=== PATIENT | female | born 1990 | race Caucasian/White ===

== ENCOUNTER 2018-05-03 18:49 | Emergency (ER) | payer MEDICAID, OTHER ==
[2018-05-03 19:31] VITALS: O2SAT 97
[2018-05-03] MEDS ORDERED: Norflex 60 MG/2 ML IM ONE (19:45)
[2018-05-03] MEDS ORDERED: TORAdol 30 mg Injection IM ONE (19:45)
[2018-05-03] MEDS ORDERED: Norflex 60 MG/2 ML ONE (19:50)
[2018-05-03] MEDS ORDERED: TORAdol 30 mg Injection ONE (19:50)
--- NOTE | 2018-05-03 19:50 | ERPHSYRPT ---
- History of Present Illness Time Seen by Provider: 05/03/18 19:41 Source: patient Exam Limitations: no limitations Patient Subjective Stated Complaint: pt states while transferring a pt from a chair to wheelchair she pulled somethihng in her back. states pain is in lt lower back radiating down and to rt side Triage Nursing Assessment: pt alert and oriented, asnwers questions approp. pt ambulatory with steady gait ntoed. respirations nonlabored with lungs cta. tenderness ntoed to lt lower back. pt reports good sensation in lower ext. cap refill and pedal pulses wnl. Physician History: This is a 28-year-old white female arrives with complaint of pain in her left lumbar region symptoms since today patient states she injured her back lifting a client out of a chair. She states she felt a pop she has pain in the left lumbar region. She has no neurologic changes pain is worse with movement no shortness of breath. Past medical history includes migraines, anxiety, depression, calcium deficiency Past surgical history includes tonsillectomy cholecystectomy and tubal ligation. Social history former smoker, occasional drinker no illicit drugs. Timing/Duration: today Severity: moderate Modifying Factors: Improves With: nothing Associated Symptoms: No nausea, No vomiting, No abdominal pain, No shortness of breath, No heartburn, No diaphoresis, No cough, No chills, No chest pain, No fever, No headaches, No loss of appetite, No malaise, No rash, No syncope, No weakness, No other Allergies/Adverse Reactions: Bleach Allergy (Uncoded 05/03/18 19:32) verified 06/01/16 Hx Tetanus, Diphtheria Vaccination/Date Given: Yes Hx Influenza Vaccination/Date Given: No Hx Pneumococcal Vaccination/Date Given: No Immunizations Up to Date: Yes - Review of Systems Constitutional: No Fever, No Chills Eyes: No Symptoms Ears, Nose, & Throat: No Symptoms Respiratory: No Cough, No Dyspnea Cardiac: No Chest Pain, No Edema, No Syncope Abdominal/Gastrointestinal: No Abdominal Pain, No Nausea, No Vomiting, No Diarrhea Genitourinary Symptoms: No Dysuria Musculoskeletal: Back Pain Skin: No Rash Neurological: No Dizziness, No Focal Weakness, No Sensory Changes Psychological: No Symptoms Endocrine: No Symptoms All Other Systems: Reviewed and Negative - Past Medical History Pertinent Past Medical History: Yes Neurological History: Migraines ENT History: No Pertinent History Cardiac History: No Pertinent History Respiratory History: No Pertinent History Endocrine Medical History: No Pertinent History Musculoskeletal History: Other GI Medical History: Gallbladder Disease History: No Pertinent History Psycho-Social History: Anxiety, Depression Female Reproductive Disorders: No Pertinent History Other Medical History: "Chronic Calcium deficiency" - Past Surgical History Past Surgical History: Yes Neuro Surgical History: No Pertinent History Cardiac: No Pertinent History Respiratory: No Pertinent History Gastrointestinal: Cholecystectomy Genitourinary: No Pertinent History Musculoskeletal: No Pertinent History Female Surgical History: No Pertinent History, Tubal Ligation Other Surgical History: t and a - Social History Smoking Status: Former smoker How long have you smoked: 11 Exposure to second hand smoke: No Drug Use: none Patient Lives Alone: No - Female History Hx Last Menstrual Period: 3 days ago Hx Now: No - Nursing Vital Signs Nursing Vital Signs: Initial Vital Signs Temperature 97.9 F 05/03/18 19:19 Pulse Rate 96 H 05/03/18 19:19 Respiratory Rate 18 05/03/18 19:19 Blood Pressure 122/77 05/03/18 19:19 O2 Sat by Pulse Oximetry 97 05/03/18 19:19 Pain Scale Pain Intensity [] 7 Pain Intensity 8 - Physical Exam General Appearance: mild distress Eye Exam: PERRL/EOMI, eyes nml inspection Ears, Nose, Throat Exam: normal ENT inspection, TMs normal, pharynx normal, moist mucous membranes Neck Exam: normal inspection, non-tender, supple, full range of motion Respiratory Exam: normal breath sounds, lungs clear, No respiratory distress Cardiovascular Exam: regular rate/rhythm, normal heart sounds, normal peripheral pulses Gastrointestinal/Abdomen Exam: soft, normal bowel sounds, No tenderness, No mass Back Exam: other (back is tender in the left lumbar region with movement and palpation, muscles are tight left lumbar region) Extremity Exam: normal inspection, normal range of motion, pelvis stable Neurologic Exam: alert, oriented x 3, cooperative, senior medical technologist II-XII nml as tested, normal mood/affect, nml cerebellar function, nml station & gait, sensation nml, No motor deficits Skin Exam: normal color, warm, dry, No rash SpO2 Interpretation: normal (97%) SpO2: 97 - Course Nursing assessment & vital signs reviewed: Yes EKG Interpreted by Me: RATE (81 bpm), Sinus Rhythm, NORMAL AXIS, Other (EKG sinus arrhythmia, 81 bpm, normal axis, no acute st or t wave changes noted) - CT Exams Abdomen/Pelvis CT Interpretation: Tele-radiologist Report (CT abdomen and pelvis: Impression 1. No renal or ureteral stones, no hydronephrosis 2. Diverticulosis without diverticulitis, 3. Trace pericardial effusion) Ordered Tests: Active Orders 24 hr Category Date Time Status EKG-ER Only STAT Care 05/03/18 23:55 Active IV Insertion STAT Care 05/03/18 21:42 Active ABDOMEN AND PELVIS W/0 CONTRAS [CT] Stat Exams 05/03/18 21:56 Taken AMYLASE Stat Lab 05/03/18 22:00 Completed CBC W DIFF Stat Lab 05/03/18 22:00 Completed CMP Stat Lab 05/03/18 22:00 Completed HCG,QUALITATIVE URINE Stat Lab 05/03/18 21:10 Completed LIPASE Stat Lab 05/03/18 22:00 Completed UA W/RFX UR CULTURE Stat Lab 05/03/18 21:10 Completed Medication Summary Discontinued Medications Generic Name Dose Route Start Last Admin Trade Name Davidq PRN Reason Stop Dose Admin Sodium Chloride 1,000 mls @ 999 mls/hr 05/03/18 21:42 05/03/18 23:39 Sodium Chloride 0.9% 1000 Ml IV 05/03/18 22:42 Infused .Q1H1M STA Infusion Sodium Chloride Confirm 05/03/18 22:14 Sodium Chloride 0.9% 1000 Ml Administered 05/03/18 22:15 Dose 1,000 mls @ ud .ROUTE .STK-MED ONE Ketorolac Tromethamine 60 mg 05/03/18 19:45 05/03/18 19:54 Toradol 30 Mg Injection IM 05/03/18 19:46 60 mg STAT ONE Administration Ketorolac Tromethamine Confirm 05/03/18 19:50 Toradol 30 Mg Injection Administered 05/03/18 19:51 Dose 60 mg .ROUTE .STK-MED ONE Morphine Sulfate 4 mg 05/03/18 21:56 05/03/18 22:18 Morphine Sulfate 4 Mg Inj IV 05/03/18 21:57 4 mg STAT ONE Administration Morphine Sulfate Confirm 05/03/18 22:14 Morphine Sulfate 4 Mg Inj Administered 05/03/18 22:15 Dose 4 mg .ROUTE .STK-MED ONE Morphine Sulfate 4 mg 05/03/18 23:56 05/04/18 00:03 Morphine Sulfate 4 Mg Inj IV 05/03/18 23:57 4 mg STAT ONE Administration Morphine Sulfate Confirm 05/04/18 00:02 Morphine Sulfate 4 Mg Inj Administered 05/04/18 00:03 Dose 4 mg .ROUTE .STK-MED ONE Ondansetron HCl 4 mg 05/03/18 21:56 05/03/18 22:18 Zofran 4 Mg/2 Ml Vial IV 05/03/18 21:57 4 mg STAT ONE Administration Ondansetron HCl Confirm 05/03/18 22:14 Zofran 4 Mg/2 Ml Vial Administered 05/03/18 22:15 Dose 4 mg .ROUTE .STK-MED ONE Orphenadrine Citrate 60 mg 05/03/18 19:45 05/03/18 19:53 Norflex 60 Mg/2 Ml IM 05/03/18 19:46 60 mg STAT ONE Administration Orphenadrine Citrate Confirm 05/03/18 19:50 Norflex 60 Mg/2 Ml Administered 05/03/18 19:51 Dose 60 mg .ROUTE .STK-MED ONE Lab/Rad Data: Laboratory Result Diagrams 05/03/18 22:00 05/03/18 22:00 Laboratory Results 05/03/18 05/03/18 05/03/18 Range/Units 22:00 22:00 22:00 WBC 9.0 (4.0-10.5) K/mm3 RBC 4.81 (4.1-5.4) M/mm3 Hgb 12.6 (12.0-16.0) gm/dl Hct 38.5 (35-47) % MCV 80.0 (78-100) fl MCH 26.2 (26-32) pg MCHC 32.7 (32-36) g/dl RDW 14.3 H (11.5-14.0) % Plt Count 343 (150-450) K/mm3 MPV 10.2 H (6-9.5) fl Gran % 60.4 (36.0-66.0) % Eos # (Auto) 0.05 (0-0.5) Absolute Lymphs (auto) 2.82 (1.0-4.6) Absolute Monos (auto) 0.66 (0.0-1.3) Lymphocytes % 31.4 (24.0-44.0) % Monocytes % 7.4 (0.0-12.0) % Eosinophils % 0.6 (0.00-5.0) % Basophils % 0.2 (0.0-0.4) % Absolute Granulocytes 5.42 (1.4-6.9) Basophils # 0.02 (0-0.4) Sodium 142 (137-145) mmol/L Potassium 3.7 (3.5-5.1) mmol/L Chloride 105 (98-107) mmol/L Carbon Dioxide 26 (22-30) mmol/L Anion Gap 15.1 H (5-15) MEQ/L BUN 11 (7-17) mg/dL Creatinine 0.70 (0.52-1.04) mg/dL Estimated GFR > 60.0 ML/MIN Glucose 95 (74-106) mg/dL Calcium 10.0 (8.4-10.2) mg/dL Total Bilirubin 0.20 (0.2-1.3) mg/dL AST 22 (14-36) U/L ALT 21 (0-35) U/L Alkaline Phosphatase 80 (38-126) U/L Serum Total Protein 7.9 (6.3-8.2) g/dL Albumin 4.9 (3.5-5.0) g/dL Amylase 48 (30-110) U/L Lipase 88 (23-300) U/L Ur Collection Type Urine Color (YELLOW) Urine Appearance (CLEAR) Urine pH (5-6) Ur Specific [place] (1.005-1.025) Urine Protein (Negative) Urine Ketones (NEGATIVE) Urine Blood (0-5) Felipe/ul Urine Nitrite (NEGATIVE) Urine Bilirubin (NEGATIVE) Urine Urobilinogen (0-1) mg/dL Ur Leukocyte Esterase (NEGATIVE) Urine Culture Reflexed (NO) Urine Glucose (NEGATIVE) mg/dL Urine HCG, Qual (Negative) Specimen Received 05/03/18 05/03/18 Range/Units 21:10 21:10 WBC (4.0-10.5) K/mm3 RBC (4.1-5.4) M/mm3 Hgb (12.0-16.0) gm/dl Hct (35-47) % MCV (78-100) fl MCH (26-32) pg MCHC (32-36) g/dl RDW (11.5-14.0) % Plt Count (150-450) K/mm3 MPV (6-9.5) fl Gran % (36.0-66.0) % Eos # (Auto) (0-0.5) Absolute Lymphs (auto) (1.0-4.6) Absolute Monos (auto) (0.0-1.3) Lymphocytes % (24.0-44.0) % Monocytes % (0.0-12.0) % Eosinophils % (0.00-5.0) % Basophils % (0.0-0.4) % Absolute Granulocytes (1.4-6.9) Basophils # (0-0.4) Sodium (137-145) mmol/L Potassium (3.5-5.1) mmol/L Chloride (98-107) mmol/L Carbon Dioxide (22-30) mmol/L Anion Gap (5-15) MEQ/L BUN (7-17) mg/dL Creatinine (0.52-1.04) mg/dL Estimated GFR ML/MIN Glucose (74-106) mg/dL Calcium (8.4-10.2) mg/dL Total Bilirubin (0.2-1.3) mg/dL AST (14-36) U/L ALT (0-35) U/L Alkaline Phosphatase (38-126) U/L Serum Total Protein (6.3-8.2) g/dL Albumin (3.5-5.0) g/dL Amylase (30-110) U/L Lipase (23-300) U/L Ur Collection Type CCMS Urine Color YELLOW (YELLOW) Urine Appearance CLEAR (CLEAR) Urine pH 5.0 (5-6) Ur Specific [place] 1.030 (1.005-1.025) Urine Protein NEGATIVE (Negative) Urine Ketones NEGATIVE (NEGATIVE) Urine Blood NEGATIVE (0-5) Felipe/ul Urine Nitrite NEGATIVE (NEGATIVE) Urine Bilirubin NEGATIVE (NEGATIVE) Urine Urobilinogen NORMAL (0-1) mg/dL Ur Leukocyte Esterase NEGATIVE (NEGATIVE) Urine Culture Reflexed NO (NO) Urine Glucose NEGATIVE (NEGATIVE) mg/dL Urine HCG, Qual NEGATIVE (Negative) Specimen Received 05-03-18 2145 - Progress Progress: improved Progress Note: 05/03/18 21:57 28-year-old white female arrives with complaint of pain in her left flank and lumbar region. Which began while she was lifting a patient out of a chair she states that she had a sensation of a popping. On initial evaluation patient with the tenderness in the left lumbar region she had muscle spasms in the area. Patient was given Toradol and Norflex IM. She now is beginning to complain of pain which is much worse and radiates up into her mid scapular region urinalysis and negative urine hCG is negative. Will go ahead and obtain CBC CMP amylase lipase and CT abdomen. . 05/03/18 23:[address] of the abdomen obtained because patient continued to complain of severe pain in the left flank which was radiating into her subscapular region after lifting a patient at work. Pain continued after injection of Naprosyn and Flexeril and morphine. CT shows impression: 1. No renal or ureteral stones. No hydronephrosis 2. Diverticulosis without diverticulitis. 3. Trace pericardial effusion. Patient is continuing to complain of pain in the left flank at this time we'll go ahead and give her another 4 mg of morphine IM. Because of the trace pericardial effusion which was seen on CT Will obtain EKG. However doubt this is a significant finding. Plan home. Naprosyn 500 mg orally twice a day with food as needed for pain #20. Flexeril 10 mg orally 3 times a day for 5 days. Patient to follow-up with her company physician. No lifting more than 5 pounds repetitive bending twisting lifting pushing pulling. For 48 hours. - Departure Time of Disposition: 00:26 Departure Disposition: Home Clinical Impression: Musculoskeletal strain Back pain Qualifiers: Back pain location: low back pain Chronicity: acute Back pain laterality: left Sciatica presence: without sciatica Qualified Code(s): M54.5 - Low back pain Condition: Fair Critical Care Time: No Referrals: FABIAN MARTINEZ [Primary Care Provider] - Instructions: Low Back Pain (DC) Additional Instructions: Return home. Flexeril 10 mg orally 3 times a day #15. Naprosyn 500 mg orally twice a day with food #20. Follow-up with your company physician. No lifting more than 5 pounds no strenuous pulling pushing twisting. No repetitive bending. 48 hours. Return for acute distress or for severe symptoms. Prescriptions: Cyclobenzaprine HCl [Flexeril] 10 mg PO TID #15 tablet Naproxen 500 mg [Naprosyn 500 MG] 500 mg PO BID #20 tablet
[2018-05-03] MEDS ORDERED: Sodium Chloride 0.9% 1000 ML 1,000 ML IV STA (21:42)
[2018-05-03 21:47] LABS: Appearance CLEAR (CLEAR); Bilirubin NEGATIVE (NEGATIVE); Blood NEGATIVE Ery/ul (0-5); Glucose NEGATIVE (NEGATIVE); Ketones NEGATIVE (NEGATIVE); Leukocyte Esterase NEGATIVE (NEGATIVE); Nitrite NEGATIVE (NEGATIVE); Protein,Urine Dip NEGATIVE (Negative); Urobilinogen NORMAL mg/dL (0-1)
[2018-05-03] MEDS ORDERED: MORPHINE SULFATE 4 MG INJ IV ONE ×2 (21:56→23:56)
[2018-05-03] MEDS ORDERED: Zofran 4 MG/2 ML VIAL IV ONE (21:56)
[2018-05-03 22:12] LABS: BASOPHIL % 0.2 % (0.0-0.4); Basophil (Absolute #) 0.02 (0-0.4); Eosinophil % 0.6 % (0.00-5.0); Eosinophil (Absolute #) 0.05 (0-0.5); Granulocyte Absolute (ANC) 5.42 (1.4-6.9); Granulocytes % 60.4 % (36.0-66.0); Hematocrit 38.5 % (35-47); Hemoglobin 12.6 gm/dl (12.0-16.0); Lymphocyte (Absolute #) 2.82 (1.0-4.6); Lymphocytes % 31.4 % (24.0-44.0); Mean Corpuscular Hemoglobin 26.2 pg (26-32); Mean Corpuscular Hgb Concent. 32.7 g/dl (32-36); Mean Platelet Volume 10.2 fl (6-9.5); Monocyte (Absolute #) 0.66 (0.0-1.3); Monocytes % 7.4 % (0.0-12.0); Platelet Count 343 K/mm3 (150-450); Red Blood Count 4.81 M/mm3 (4.1-5.4); Red Cell Distribution Width 14.3 % (11.5-14.0)
[2018-05-03] MEDS ORDERED: Sodium Chloride 0.9% 1000 ML 1,000 ML ONE (22:14)
[2018-05-03] MEDS ORDERED: Zofran 4 MG/2 ML VIAL ONE (22:14)
[2018-05-03] MEDS ORDERED: MORPHINE SULFATE 4 MG INJ ONE (22:14)
[2018-05-03 22:29] LABS: ALBUMIN 4.9 g/dL (3.5-5.0); ALKALINE PHOSPHATASE 80 U/L (38-126); ANION GAP 15.1 MEQ/L (5-15); BLOOD UREA NITROGEN 11 mg/dL (7-17); CHLORIDE 105 mmol/L (98-107); Carbon Dioxide 26 mmol/L (22-30); Glucose 95 mg/dL (74-106); Potassium 3.7 mmol/L (3.5-5.1); SGOT/AST 22 U/L (14-36); SGPT/ALT 21 U/L (0-35); SODIUM 142 mmol/L (137-145); Total Protein 7.9 g/dL (6.3-8.2)
[2018-05-03 22:30] LABS: AMYLASE 48 U/L (30-110); LIPASE 88 U/L (23-300)
[2018-05-04] MEDS ORDERED: MORPHINE SULFATE 4 MG INJ ONE (00:02)
[2018-05-04 00:49] VITALS: BP 108/65; PULSE 79
--- NOTE | 2018-05-04 08:58 | XRAY ---
Indication: Left flank/back pain following lifting injury. Multiple contiguous axial images obtained through the abdomen and pelvis without contrast as ordered. Comparison: None Lung bases are clear. Heart is not enlarged. Stomach is distended with food. Noncontrasted stomach and bowel loops appear nonobstructed. Normal appendix. 1.6 cm left ovary cyst. No free fluid/air. Cholecystectomy clips and faint bilateral nephrocalcinosis. Remaining liver, pancreas, spleen, adrenal glands, kidneys, ureters, bladder, uterus, and aorta appear unremarkable for noncontrast exam. Osseous structures intact. No ventral or inguinal hernias. Left gluteal subcutaneous induration with tiny air bubble presumed iatrogenic. Impression: 1. 1.6 cm dominant left ovary cyst. 2. Faint nonobstructing bilateral nephrocalcinosis. 3. Left gluteal subcutaneous induration with air bubble presumed iatrogenic. Query recent injection. 4. Remaining CT abdomen/pelvis without contrast exam is negative. Comment: Preliminary interpretation was made by [facility]. No critical discrepancy. CT DI 27.21
== END 2018-05-04 00:49 | disposition home or self-care (01) ==
LOC: ED 18:49
DX: S39.012A Strain of muscle, fascia and tendon of lower back, initial encounter (principal); M54.5 Low back pain; M62.830 Muscle spasm of back; R10.9 Unspecified abdominal pain; I31.3 Pericardial effusion (noninflammatory); X50.0XXA Overexertion from strenuous movement or load, initial encounter; Y93.F2 Activity, caregiving, lifting; Y92.129 Unspecified place in nursing home as the place of occurrence of the external cause; Y99.0 Civilian activity done for income or pay
CPT/HCPCS: 36000; 36415; 74176; 80053; 81002; 82150; 83690; 84703; 85025; 93005; 96360; 96372; 96374; 96375; 96376; 99285; J1885; J2270; J2360; J2405

== ENCOUNTER 2021-01-27 07:02 | Day surgery (SDC) | payer BC ==
[2021-01-27] MEDS ORDERED: CEFAZOLIN 2 GM-D5W BAG** 2 GM/50 ML ML IV SCH (07:30)
[2021-01-27] MEDS ORDERED: Lactated Ringers 1,000 ML IV SCH (07:30)
[2021-01-27] MEDS ORDERED: Lactated Ringers 1,000 ML IV ONE (07:54)
[2021-01-27] MEDS ORDERED: CEFAZOLIN 2 GM-D5W BAG** 2 GM/50 ML ML IV ONE (07:54)
[2021-01-27] MEDS ORDERED: SUBLIMAZE 100 MCG/2 ML ONE ×2 (09:06→10:14)
[2021-01-27] MEDS ORDERED: DIPRIVAN 200 MG/20 ML IV ONE ×2 (09:06→09:50)
[2021-01-27] MEDS ORDERED: Versed 2 MG/2 ML Injection ONE (09:06)
[2021-01-27] MEDS ORDERED: Decadron 4 MG INJ ONE ×2 (09:07→09:11)
[2021-01-27] MEDS ORDERED: Zofran 4 MG/2 ML VIAL ONE ×2 (09:09→09:11)
[2021-01-27] MEDS ORDERED: TORAdol 30 mg Injection IM ONE (11:05)
[2021-01-27 11:14] VITALS: PULSE 70
[2021-01-27 11:27] VITALS: O2SAT 96
[2021-01-27 11:49] VITALS: BP 122/68
--- NOTE | 2021-01-28 09:21 | OP ---
SURGERY DATE/TIME: 01/27/2021 0915 PREOPERATIVE DIAGNOSIS: Menorrhagia. POSTOPERATIVE DIAGNOSIS: Menorrhagia. PROCEDURE: Hysteroscopy, D&C with NovaSure ablation. SURGEON: Jose Liu D.O. DIETARY DIRECTOR: Magali Ibarra surgical assistant. ANESTHESIA: General. ESTIMATED BLOOD LOSS: Minimal. COMPLICATIONS: None. INDICATIONS: The risks, benefits, indications and alternatives of the procedure were reviewed with the patient prior to the procedure. The patient understood the risk of infection, bleeding, bowel injury, bladder injury, ureteral injury, uterine perforation, pelvic infection and clotting disorder associated with this surgery however desires to have this surgery as a possible means to alleviate her current medical condition. DESCRIPTION OF PROCEDURE AND FINDINGS: At this point the patient is taken to the operating room, given general sedation, placed in dorsal lithotomy position. Prepped and draped in the usual sterile fashion. A weighted speculum is then placed in the patient's vagina and the anterior lip of the cervix is grasped with a single tooth tenaculum. Endocervical dilators were advanced through the endocervical canal as a means to dilate the cervix and at this point a 5 mm hysteroscope was then placed in through the endocervical canal where visualization of the endometrial lining appeared to be within normal limits with no gross abnormalities within the uterine cavity. From this point the hysteroscope was then removed and the NovaSure instrument was then used and was placed into the fundus of the uterus retracting approximately 1 cm with a measurement of 6 cm. The instrument was engaged with a width of 3.3 cm. The machine was turned on with an ablative time of 1 minute and 14 seconds. At the completion of the ablation the instrument was then disengaged and removed from the uterine cavity. Prior to the ablation a curette was placed in the fundus of the uterus and curettage was performed in all quadrants of the uterus retrieving a moderate amount of tissue. After the completion of the ablation, the patient was then taken out of dorsal lithotomy position, was taken out of anesthesia and was then taken to the recovery room in stable condition. All instruments and laps were accounted for x2.
== END 2021-01-27 11:55 | disposition home or self-care (01) ==
LOC: SDC 07:02
PROVIDERS: ATTEND Obstetrics & Gynecology
DX: N92.0 Excessive and frequent menstruation with regular cycle (principal)
CPT/HCPCS: 84703; J0690; J1100; J1885; J2250; J2405; J2704; J3010

== ENCOUNTER 2021-03-11 19:06 | Observation (INO) | payer BC ==
[2021-03-11] MEDS ORDERED: MORPHINE SULFATE 4 MG INJ IV ONE ×2 (19:29→22:00)
[2021-03-11] MEDS ORDERED: Sodium Chloride 0.9% 1000 ML 1,000 ML IV STA (19:29)
[2021-03-11] MEDS ORDERED: Zofran 4 MG/2 ML VIAL IV ONE (19:29)
[2021-03-11] MEDS ORDERED: Zofran 4 MG/2 ML VIAL ONE (19:32)
[2021-03-11] MEDS ORDERED: MORPHINE SULFATE 4 MG INJ ONE ×2 (19:32→22:01)
[2021-03-11] MEDS ORDERED: Sodium Chloride 0.9% 1000 ML 1,000 ML ONE (19:32)
[2021-03-11 19:45] LABS: Absolute Neutrophil Ct (ANC) 4.71 (1.4-6.9); BASOPHIL % 0.3 % (0.0-0.4); Basophil (Absolute #) 0.02 (0-0.4); Eosinophil % 0.8 % (0.00-5.0); Eosinophil (Absolute #) 0.06 (0-0.5); Hematocrit 38.1 % (35-47); Hemoglobin 11.9 gm/dl (12.0-16.0); Lymphocyte (Absolute #) 1.89 (1.0-4.6); Lymphocytes % 26.2 % (24.0-44.0); Mean Cell Volume 80.2 fl (78-100); Mean Corpuscular Hemoglobin 25.1 pg (26-32); Mean Corpuscular Hgb Concent. 31.2 g/dl (32-36); Mean Platelet Volume 9.4 fl (7.5-11.0); Monocyte (Absolute #) 0.53 (0.0-1.3); Monocytes % 7.4 % (0.0-12.0); Neutrophil % 65.3 % (36.0-66.0); Platelet Count 350 K/mm3 (150-450); Red Blood Count 4.75 M/mm3 (4.1-5.4); Red Cell Distribution Width 14.5 % (11.5-14.0); White Blood Count 7.2 K/mm3 (4.0-10.5)
--- NOTE | 2021-03-11 20:01 | ERPHSYRPT ---
- History of Present Illness Time Seen by Provider: 03/11/21 19:17 Historian: patient Exam Limitations: no limitations Patient Subjective Stated Complaint: pt states she started having fever, aches, lower back pain and radiates around to pelvis Triage Nursing Assessment: pt alert and oriented, answers questions approp. pt ambulatory with steady gait noted. respirations nonlabored with lungs cta. abd soft. pt reports mild tenderness in rt lower abd. bowel sounds present. skin warm and dry Physician History: 30 years old female with history of cholecystectomy presented in the ER with right-sided abdominal pain for the last 3 days with associated nausea and multiple episodes of nonprojectile, nonbilious vomiting. Patient also reports having fever with a T-max of 103. She has been taking olpt-rko-xarutrt medicat ions and last time took Tylenol around 11 AM today and does not have fever now. Patient reports moderate to severe intensity sharp aching pain in the right flank/right lower quadrant without any significant aggravating or relieving factors. Denies any urinary increased frequency urgency/dysuria/hematuria. Denies any sick contact. Timing/Duration: day(s) (3), intermittent, gradual onset, worse Activities at Onset: rest Quality: aching, sharpness Abdominal Pain Onset Location: RUQ, RLQ, flank Severity of Pain-Max: severe Severity of Pain-Current: moderate Modifying Factors: Improves With: nothing Associated Symptoms: nausea, vomiting Previous symptoms: no prior history Allergies/Adverse Reactions: Bleach Allergy (Uncoded 03/11/21 19:28) verified 06/01/16 Home Medications: Duloxetine HCl [Cymbalta] 60 mg PO DAILY 01/19/21 [History] Hx Tetanus, Diphtheria Vaccination/Date Given: Yes Hx Influenza Vaccination/Date Given: No Hx Pneumococcal Vaccination/Date Given: No Immunizations Up to Date: Yes Travel Risk - International Travel Have you traveled outside of the country in past 3 weeks: No - Coronavirus Screening Are you exhibiting any of the following symptoms?: Yes Symptoms: Fever, Vomiting/Diarrhea, Headaches/Body Aches/Fatigue Close contact with a COVID-19 positive Pt in past 14-21 Days: No - Vaccine Status Have you recieved a Covid-19 vaccination: No - Review of Systems Constitutional: Fever, Chills, Fatigue, Weakness Eyes: No Symptoms Ears, Nose, & Throat: No Symptoms Respiratory: No Symptoms Cardiac: No Symptoms Abdominal/Gastrointestinal: Abdominal Pain, Nausea, Vomiting Musculoskeletal: Myalgias Skin: No Symptoms Neurological: No Symptoms Psychological: No Symptoms Endocrine: No Symptoms Hematologic/Lymphatic: No Symptoms Immunological/Allergic: No Symptoms - Past Medical History Pertinent Past Medical History: Yes Neurological History: Migraines ENT History: No Pertinent History Cardiac History: No Pertinent History Respiratory History: Asthma Endocrine Medical History: No Pertinent History Musculoskeletal History: Other GI Medical History: Gallbladder Disease History: No Pertinent History Psycho-Social History: Anxiety, Depression Female Reproductive Disorders: No Pertinent History Other Medical History: "Chronic Calcium deficiency". anemia - Past Surgical History Past Surgical History: Yes Neuro Surgical History: No Pertinent History Cardiac: No Pertinent History Respiratory: No Pertinent History Gastrointestinal: Cholecystectomy Genitourinary: No Pertinent History Musculoskeletal: No Pertinent History Female Surgical History: No Pertinent History, Tubal Ligation Other Surgical History: t and a - Social History Smoking Status: Former smoker How long have you smoked: 11 Exposure to second hand smoke: Yes Drug Use: none Patient Lives Alone: No - Female History Hx Last Menstrual Period: ablation in january Hx Now: No - Nursing Vital Signs Nursing Vital Signs: Initial Vital Signs Temperature 98.4 F 03/11/21 19:13 Pulse Rate 126 H 03/11/21 19:13 Respiratory Rate 16 03/11/21 19:13 Blood Pressure 128/81 03/11/21 19:13 O2 Sat by Pulse Oximetry 98 03/11/21 19:13 Pain Scale Pain Intensity 6 - Physical Exam General Appearance: no apparent distress, alert Eye Exam: PERRL/EOMI, eyes nml inspection Ears, Nose, Throat Exam: normal ENT inspection, pharyngeal erythema Neck Exam: normal inspection, non-tender, supple, full range of motion Respiratory Exam: normal breath sounds, lungs clear Cardiovascular Exam: normal heart sounds, tachycardia Gastrointestinal/Abdomen Exam: soft, normal bowel sounds, tenderness (Right flank/right lower quadrant with guarding and rebound tenderness) Back Exam: normal inspection, normal range of motion, CVA tenderness Extremity Exam: normal inspection, normal range of motion Neurologic Exam: alert, oriented x 3, cooperative Skin Exam: normal color SpO2 Interpretation: normal SpO2: 98 O2 Delivery: Room Air Ordered Tests: Active Orders 24 hr Category Date Time Status IV Insertion STAT Care 03/11/21 19:29 Active NPO (ED) STAT Care 03/11/21 19:29 Active ABDOMEN AND PELVIS W CONTRAST [CT] Stat Exams 03/11/21 19:30 Taken BLOOD CULTURE Stat Lab 03/11/21 20:27 Received CBC W DIFF Stat Lab 03/11/21 19:30 Completed CMP Stat Lab 03/11/21 19:30 Completed CULTURE,URINE Stat Lab 03/11/21 19:31 Received LIPASE Stat Lab 03/11/21 19:30 Completed UA W/RFX UR CULTURE Stat Lab 03/11/21 19:31 Completed Medication Summary Discontinued Medications Generic Name Dose Route Start Last Admin Trade Name Davidq PRN Reason Stop Dose Admin Hydromorphone HCl 1 mg 03/11/21 20:31 03/11/21 20:34 Hydromorphone 1 Mg/Ml Injection IV 03/11/21 20:32 1 mg STAT ONE Administration Hydromorphone HCl Confirm 03/11/21 20:34 Hydromorphone 1 Mg/Ml Injection Administered 03/11/21 20:35 Dose 1 mg .ROUTE .STK-MED ONE Sodium Chloride 1,000 mls @ 999 mls/hr 03/11/21 19:29 03/11/21 20:36 Sodium Chloride 0.9% 1000 Ml IV 03/11/21 20:29 Infused .Q1H1M STA Infusion Sodium Chloride Confirm 03/11/21 19:32 Sodium Chloride 0.9% 1000 Ml Administered 03/11/21 19:33 Dose 1,000 mls @ ud .ROUTE .STK-MED ONE Ceftriaxone Sodium/Dextrose 2 g in 50 mls @ 100 mls/hr 03/11/21 20:08 03/11/21 20:53 Rocephin 2 Gm-D5w 50ml Bag IV 03/11/21 20:37 Infused STAT STA Infusion Ceftriaxone Sodium/Dextrose Confirm 03/11/21 20:10 Rocephin 2 Gm-D5w 50ml Bag Administered 03/11/21 20:11 Dose 2 g in 50 mls @ ud IV .STK-MED ONE Ketorolac Tromethamine 30 mg 03/11/21 20:09 03/11/21 20:12 Toradol 30 Mg Injection IV 03/11/21 20:10 30 mg STAT ONE Administration Ketorolac Tromethamine Confirm 03/11/21 20:10 Toradol 30 Mg Injection Administered 03/11/21 20:11 Dose 30 mg .ROUTE .STK-MED ONE Morphine Sulfate 4 mg 03/11/21 19:29 03/11/21 19:35 Morphine Sulfate 4 Mg Inj IV 03/11/21 19:30 4 mg STAT ONE Administration Morphine Sulfate Confirm 03/11/21 19:32 Morphine Sulfate 4 Mg Inj Administered 03/11/21 19:33 Dose 4 mg .ROUTE .STK-MED ONE Morphine Sulfate 4 mg 03/11/21 22:00 03/11/21 22:02 Morphine Sulfate 4 Mg Inj IV 03/11/21 22:01 4 mg STAT ONE Administration Morphine Sulfate Confirm 03/11/21 22:01 Morphine Sulfate 4 Mg Inj Administered 03/11/21 22:02 Dose 4 mg .ROUTE .STK-MED ONE Ondansetron HCl 4 mg 03/11/21 19:29 03/11/21 19:35 Zofran 4 Mg/2 Ml Vial IV 03/11/21 19:30 4 mg STAT ONE Administration Ondansetron HCl Confirm 03/11/21 19:32 Zofran 4 Mg/2 Ml Vial Administered 03/11/21 19:33 Dose 4 mg .ROUTE .STK-MED ONE Lab/Rad Data: Laboratory Result Diagrams 03/11/21 19:30 03/11/21 19:30 Laboratory Results 03/11/21 03/11/21 03/11/21 Range/Units 19:31 19:30 19:30 WBC 7.2 (4.0-10.5) K/mm3 RBC 4.75 (4.1-5.4) M/mm3 Hgb 11.9 L (12.0-16.0) gm/dl Hct 38.1 (35-47) % MCV 80.2 (78-100) fl MCH 25.1 L (26-32) pg MCHC 31.2 L (32-36) g/dl RDW 14.5 H (11.5-14.0) % Plt Count 350 (150-450) K/mm3 MPV 9.4 (7.5-11.0) fl Gran % 65.3 (36.0-66.0) % Eos # (Auto) 0.06 (0-0.5) Absolute Lymphs (auto) 1.89 (1.0-4.6) Absolute Monos (auto) 0.53 (0.0-1.3) Lymphocytes % 26.2 (24.0-44.0) % Monocytes % 7.4 (0.0-12.0) % Eosinophils % 0.8 (0.00-5.0) % Basophils % 0.3 (0.0-0.4) % Absolute Granulocytes 4.71 (1.4-6.9) Basophils # 0.02 (0-0.4) Sodium 138 (137-145) mmol/L Potassium 3.4 L (3.5-5.1) mmol/L Chloride 102 (98-107) mmol/L Carbon Dioxide 25 (22-30) mmol/L Anion Gap 15.4 H (5-15) MEQ/L BUN 7 (7-17) mg/dL Creatinine 0.76 (0.52-1.04) mg/dL Estimated GFR > 60.0 ML/MIN Glucose 114 H (74-106) mg/dL Calcium 9.5 (8.4-10.2) mg/dL Total Bilirubin 0.40 (0.2-1.3) mg/dL AST 21 (14-36) U/L ALT 15 (0-35) U/L Alkaline Phosphatase 70 (38-126) U/L Serum Total Protein 8.2 (6.3-8.2) g/dL Albumin 4.5 (3.5-5.0) g/dL Lipase 51 (23-300) U/L Urine Color CARINA (YELLOW) Urine Appearance SLIGHTLY CLOUDY (CLEAR) Urine pH 6.0 (5-6) Ur Specific [place] 1.012 (1.005-1.025) Urine Protein NEGATIVE (Negative) Urine Ketones NEGATIVE (NEGATIVE) Urine Blood NEGATIVE (0-5) Felipe/ul Urine Nitrite POSITIVE (NEGATIVE) Urine Bilirubin NEGATIVE (NEGATIVE) Urine Urobilinogen NEGATIVE (0-1) mg/dL Ur Leukocyte Esterase MODERATE (NEGATIVE) Urine WBC (Auto) 26-50 (0-5) /HPF Urine RBC (Auto) 16-25 (0-2) /HPF U Epithel Cells (Auto) RARE (FEW) /HPF Urine Bacteria (Auto) PACKED (NEGATIVE) /HPF Urine Mucus (Auto) SLIGHT (NEGATIVE) /HPF Urine Culture Reflexed YES (NO) Urine Glucose NEGATIVE (NEGATIVE) mg/dL - Progress Progress: improved, pain not gone completely, re-examined Progress Note: 03/11/21 22:18 30 years old is evaluated for right flank/right lower quadrant pain. She is given fluids and multiple doses of pain medication but no complete resolution of pain. Has normal white count, grossly unremarkable chemistries. Does have UTI and started on Rocephin. I have obtained CT abdomen pelvis with contrast which is negative for any acute findings. I believe patient is developing acute pyelonephritis with UTI and right flank pain. I have discussed with Dr. Hirsch, reviewed history, work-up and current management, agreed with observation admission, fluids and symptomatic treatment along with antibiotics. Plan discussed with patient who understand and agrees with it. Discussed with : Radha Will see patient in: hospital (observation) Counseled pt/family regarding: lab results, diagnosis, rad results - Departure Departure Disposition: Observation Clinical Impression: Acute UTI, Acute right flank pain Condition: Stable Critical Care Time: No Referrals: FABIAN HIRSCH [Primary Care Provider] -
[2021-03-11 20:03] LABS: ALBUMIN 4.5 g/dL (3.5-5.0); ALKALINE PHOSPHATASE 70 U/L (38-126); ANION GAP 15.4 MEQ/L (5-15); BLOOD UREA NITROGEN 7 mg/dL (7-17); CHLORIDE 102 mmol/L (98-107); Calcium 9.5 mg/dL (8.4-10.2); Carbon Dioxide 25 mmol/L (22-30); Creatinine 1 0.76 mg/dL (0.52-1.04); EST GLOMERULAR FILTRATION RATE > 60.0 ML/MIN; Glucose 114 mg/dL (74-106); LIPASE 51 U/L (23-300); Potassium 3.4 mmol/L (3.5-5.1); SGOT/AST 21 U/L (14-36); SGPT/ALT 15 U/L (0-35); SODIUM 138 mmol/L (137-145); Total Protein 8.2 g/dL (6.3-8.2)
[2021-03-11 20:06] LABS: Appearance SLIGHTLY CLOUDY (CLEAR); Bacteria PACKED /HPF (NEGATIVE); Bilirubin NEGATIVE (NEGATIVE); Blood NEGATIVE Ery/ul (0-5); Epithelial Cells RARE /HPF (FEW); Glucose NEGATIVE (NEGATIVE); Ketones NEGATIVE (NEGATIVE); Leukocyte Esterase MODERATE (NEGATIVE); Mucus SLIGHT /HPF (NEGATIVE); Nitrite POSITIVE (NEGATIVE); Protein,Urine Dip NEGATIVE (Negative); Specific Gravity 1.012 (1.005-1.025); Urobilinogen NEGATIVE mg/dL (0-1); WBC 26-50 /HPF (0-5)
[2021-03-11] MEDS ORDERED: ROCEPHIN 2 Gm-D5w 50ML BAG** 2 G/50 ML IVPB IV STA (20:08)
[2021-03-11] MEDS ORDERED: TORAdol 30 mg Injection IV ONE (20:09)
[2021-03-11] MEDS ORDERED: ROCEPHIN 2 Gm-D5w 50ML BAG** 2 G/50 ML IVPB IV ONE (20:10)
[2021-03-11] MEDS ORDERED: TORAdol 30 mg Injection ONE (20:10)
[2021-03-11] MEDS ORDERED: Hydromorphone 1 mg/ml Injection IV ONE (20:31)
[2021-03-11] MEDS ORDERED: Hydromorphone 1 mg/ml Injection ONE (20:34)
[2021-03-12] MEDS: MORPHINE SULFATE 4 MG INJ IV PRN ×2 (00:30→04:58)
[2021-03-12] MEDS: Sodium Chloride 0.9% W/ 20 mEq KCl/LITER 1,000 ML IV SCH ×3 (00:30→16:27)
[2021-03-12] MEDS: Zofran 4 MG/2 ML VIAL IV PRN ×6 (00:39→21:46)
[2021-03-12 05:07] LABS: BASOPHIL % 0.6 % (0.0-0.4); Basophil (Absolute #) 0.03 (0-0.4); Eosinophil % 1.5 % (0.00-5.0); Eosinophil (Absolute #) 0.08 (0-0.5); Hematocrit 34.2 % (35-47); Hemoglobin 10.4 gm/dl (12.0-16.0); Lymphocyte (Absolute #) 1.89 (1.0-4.6); Lymphocytes % 36.3 % (24.0-44.0); Mean Cell Volume 82.4 fl (78-100); Mean Corpuscular Hemoglobin 25.1 pg (26-32); Mean Corpuscular Hgb Concent. 30.4 g/dl (32-36); Mean Platelet Volume 9.7 fl (7.5-11.0); Monocyte (Absolute #) 0.61 (0.0-1.3); Monocytes % 11.7 % (0.0-12.0); Neutrophil % 49.9 % (36.0-66.0); Platelet Count 290 K/mm3 (150-450); Red Blood Count 4.15 M/mm3 (4.1-5.4); Red Cell Distribution Width 14.4 % (11.5-14.0); White Blood Count 5.2 K/mm3 (4.0-10.5)
[2021-03-12 05:20] LABS: ALBUMIN 3.6 g/dL (3.5-5.0); ALKALINE PHOSPHATASE 64 U/L (38-126); ANION GAP 8.9 MEQ/L (5-15); BLOOD UREA NITROGEN 9 mg/dL (7-17); CHLORIDE 107 mmol/L (98-107); Calcium 8.3 mg/dL (8.4-10.2); Carbon Dioxide 27 mmol/L (22-30); Creatinine 1 0.68 mg/dL (0.52-1.04); EST GLOMERULAR FILTRATION RATE > 60.0 ML/MIN; Glucose 92 mg/dL (74-106); Potassium 3.9 mmol/L (3.5-5.1); SGOT/AST 17 U/L (14-36); SGPT/ALT 12 U/L (0-35); SODIUM 139 mmol/L (137-145); Total Protein 6.5 g/dL (6.3-8.2)
--- NOTE | 2021-03-12 08:07 | PCM.HP ---
History of Present Illness - Chief Complaint Chief Complaint: Acute UTI History of Present Illness: is a 30 year old female who presented to the ER yesterday, for the last 5 days she has had pain in her right lower back radiating through to the front, nausea and vomiting and fever. She has had no urinary symptoms, found to have pyelonephritis in the ER, she is still having severe pain and nausea, feels ill. - Review of Systems Constitutional: Fever Respiratory: No Cough, No Short Of Breath Cardiac: No Chest Pain, No Edema, No Syncope Abdominal/Gastrointestinal: Abdominal Pain, Nausea, Vomiting, No Diarrhea, No Constipation Genitourinary Symptoms: No Dysuria, No Frequency Musculoskeletal: Back Pain Skin: No Rash Medications & Allergies Home Medications: Home Medication List Duloxetine HCl [Cymbalta] 60 mg PO DAILY 01/19/21 [History Confirmed 03/11/21] Allergies/Adverse Reactions: Allergies Allergy/AdvReac Type Severity Reaction Status Date / Time Bleach Allergy Uncoded 03/11/21 19:28 - Past Medical History Past Medical History: Yes Neurological History: Migraines ENT History: No Pertinent History Cardiac History: No Pertinent History Respiratory History: Asthma Endocrine Medical History: No Pertinent History Musculoskelatal History: Other GI Medical History: Gallbladder Disease History: No Pertinent History Pyscho-Social History: Anxiety, Depression Reproductive Disorders: No Pertinent History Comment: "Chronic Calcium deficiency". anemia - Female History Hx Last Menstrual Period: ablation in january Are you now?: No - Past Surgical History Past Surgical History: Yes Neuro Surgical History: No Pertinent History Cardiac History: No Pertinent History Respiratory Surgery: No Pertinent History GI Surgical History: Cholecystectomy Genitourinary Surgical Hx: No Pertinent History Musculskeletal Surgical Hx: No Pertinent History Female Surgical History: Dilation & Curettage, Tubal Ligation, Other Other Surgical History: ablation 01/27/21 - Social History Smoking Status: Former smoker How long have you smoked: 11 Exposure to second hand smoke: Yes Alcohol: Occasionally Drug Use: none - Physical Exam Vital Signs: Vital Signs - 24 hr Temp Pulse Resp BP Pulse Ox 03/12/21 07:33 97.6 F 87 16 104/58 96 03/12/21 04:00 97.5 F 92 H 18 111/57 99 03/12/21 00:22 97.8 F 97 H 18 107/61 100 03/11/21 23:10 92 H 16 114/73 95 03/11/21 22:20 98 03/11/21 22:00 104 H 18 122/64 98 03/11/21 21:00 116 H 20 129/86 98 03/11/21 20:00 112 H 20 129/91 98 03/11/21 19:13 98.4 F 126 H 16 128/81 98 General Appearance: no apparent distress Neurologic Exam: alert, oriented x 3, cooperative Respiratory Exam: normal breath sounds, lungs clear, No respiratory distress Cardiovascular Exam: regular rate/rhythm, normal heart sounds, normal peripheral pulses Gastrointestinal/Abdomen Exam: soft, normal bowel sounds, tenderness (right upper and lower abdomen), No guarding, No rebound Back Exam: CVA tenderness Extremity Exam: normal inspection, normal range of motion, pelvis stable Skin Exam: normal color, warm, dry, No rash Results - Labs Lab/Micro Results: Lab Results-Last 24 Hours 03/11/21 03/11/21 03/11/21 Range/Units 19:30 19:30 19:31 WBC 7.2 (4.0-10.5) K/mm3 RBC 4.75 (4.1-5.4) M/mm3 Hgb 11.9 L (12.0-16.0) gm/dl Hct 38.1 (35-47) % MCV 80.2 (78-100) fl MCH 25.1 L (26-32) pg MCHC 31.2 L (32-36) g/dl RDW 14.5 H (11.5-14.0) % Plt Count 350 (150-450) K/mm3 MPV 9.4 (7.5-11.0) fl Gran % 65.3 (36.0-66.0) % Eos # (Auto) 0.06 (0-0.5) Absolute Lymphs (auto) 1.89 (1.0-4.6) Absolute Monos (auto) 0.53 (0.0-1.3) Lymphocytes % 26.2 (24.0-44.0) % Monocytes % 7.4 (0.0-12.0) % Eosinophils % 0.8 (0.00-5.0) % Basophils % 0.3 (0.0-0.4) % Absolute Granulocytes 4.71 (1.4-6.9) Basophils # 0.02 (0-0.4) Sodium 138 (137-145) mmol/L Potassium 3.4 L (3.5-5.1) mmol/L Chloride 102 (98-107) mmol/L Carbon Dioxide 25 (22-30) mmol/L Anion Gap 15.4 H (5-15) MEQ/L BUN 7 (7-17) mg/dL Creatinine 0.76 (0.52-1.04) mg/dL Estimated GFR > 60.0 ML/MIN Glucose 114 H (74-106) mg/dL Calcium 9.5 (8.4-10.2) mg/dL Total Bilirubin 0.40 (0.2-1.3) mg/dL AST 21 (14-36) U/L ALT 15 (0-35) U/L Alkaline Phosphatase 70 (38-126) U/L Serum Total Protein 8.2 (6.3-8.2) g/dL Albumin 4.5 (3.5-5.0) g/dL Lipase 51 (23-300) U/L Urine Color CARINA (YELLOW) Urine Appearance SLIGHTLY CLOUDY (CLEAR) Urine pH 6.0 (5-6) Ur Specific [place] 1.012 (1.005-1.025) Urine Protein NEGATIVE (Negative) Urine Ketones NEGATIVE (NEGATIVE) Urine Blood NEGATIVE (0-5) Felipe/ul Urine Nitrite POSITIVE (NEGATIVE) Urine Bilirubin NEGATIVE (NEGATIVE) Urine Urobilinogen NEGATIVE (0-1) mg/dL Ur Leukocyte Esterase MODERATE (NEGATIVE) Urine WBC (Auto) 26-50 (0-5) /HPF Urine RBC (Auto) 16-25 (0-2) /HPF U Epithel Cells (Auto) RARE (FEW) /HPF Urine Bacteria (Auto) PACKED (NEGATIVE) /HPF Urine Mucus (Auto) SLIGHT (NEGATIVE) /HPF Urine Culture Reflexed YES (NO) Urine Glucose NEGATIVE (NEGATIVE) mg/dL SARS-CoV-2 (PCR) (NEGATIVE) 03/11/21 03/12/21 03/12/21 Range/Units 22:18 04:49 04:49 WBC 5.2 (4.0-10.5) K/mm3 RBC 4.15 (4.1-5.4) M/mm3 Hgb 10.4 L (12.0-16.0) gm/dl Hct 34.2 L (35-47) % MCV 82.4 (78-100) fl MCH 25.1 L (26-32) pg MCHC 30.4 L (32-36) g/dl RDW 14.4 H (11.5-14.0) % Plt Count 290 (150-450) K/mm3 MPV 9.7 (7.5-11.0) fl Gran % 49.9 (36.0-66.0) % Eos # (Auto) 0.08 (0-0.5) Absolute Lymphs (auto) 1.89 (1.0-4.6) Absolute Monos (auto) 0.61 (0.0-1.3) Lymphocytes % 36.3 (24.0-44.0) % Monocytes % 11.7 (0.0-12.0) % Eosinophils % 1.5 (0.00-5.0) % Basophils % 0.6 (0.0-0.4) % Absolute Granulocytes 2.60 (1.4-6.9) Basophils # 0.03 (0-0.4) Sodium 139 (137-145) mmol/L Potassium 3.9 (3.5-5.1) mmol/L Chloride 107 (98-107) mmol/L Carbon Dioxide 27 (22-30) mmol/L Anion Gap 8.9 (5-15) MEQ/L BUN 9 (7-17) mg/dL Creatinine 0.68 (0.52-1.04) mg/dL Estimated GFR > 60.0 ML/MIN Glucose 92 (74-106) mg/dL Calcium 8.3 L (8.4-10.2) mg/dL Total Bilirubin 0.20 (0.2-1.3) mg/dL AST 17 (14-36) U/L ALT 12 (0-35) U/L Alkaline Phosphatase 64 (38-126) U/L Serum Total Protein 6.5 (6.3-8.2) g/dL Albumin 3.6 (3.5-5.0) g/dL Lipase (23-300) U/L Urine Color (YELLOW) Urine Appearance (CLEAR) Urine pH (5-6) Ur Specific [place] (1.005-1.025) Urine Protein (Negative) Urine Ketones (NEGATIVE) Urine Blood (0-5) Felipe/ul Urine Nitrite (NEGATIVE) Urine Bilirubin (NEGATIVE) Urine Urobilinogen (0-1) mg/dL Ur Leukocyte Esterase (NEGATIVE) Urine WBC (Auto) (0-5) /HPF Urine RBC (Auto) (0-2) /HPF U Epithel Cells (Auto) (FEW) /HPF Urine Bacteria (Auto) (NEGATIVE) /HPF Urine Mucus (Auto) (NEGATIVE) /HPF Urine Culture Reflexed (NO) Urine Glucose (NEGATIVE) mg/dL SARS-CoV-2 (PCR) NEGATIVE (NEGATIVE) - Radiology Impressions Radiology Exams & Impressions: Radiology Procedures Category Date Time Status ABDOMEN AND PELVIS W CONTRAST [CT] Stat Exams 03/11/21 19:30 Taken Assessment/Plan (1) Acute pyelonephritis Current Visit: Yes Status: Acute Assessment & Plan: continue rocephin, nothing acute on CT per teleradiology, overread pending. continue fluids and current management, await urine culture Code(s): N10 - ACUTE PYELONEPHRITIS
[2021-03-12] MEDS: PROTONIX 40 MG IV IV SCH (08:58)
[2021-03-12] MEDS: Hydromorphone 1 mg/ml Injection IV PRN ×4 (08:59→21:46)
[2021-03-12] MEDS ORDERED: NON-FORMULARY ITEM (Duloxetine Hcl [Cymbalta] 60 MG) PO SCH (10:00)
--- NOTE | 2021-03-12 10:24 | XRAY ---
Exam: CT of the abdomen and pelvis with IV contrast from 03/11/2021. CTDI: 13.17 mGy Comparison: CT of the abdomen and pelvis without IV contrast from 05/03/2018. Indication: 30-year-old female with right flank pain/right lower quadrant pain 5 days; UTI with fever, nausea and vomiting. The patient has a history of prior cholecystectomy, tubal ligation, uterine ablation, and D and C according to the information sheet. Technique: Post-IV contrast axial images were obtained through the abdomen and pelvis during automated injection of 77 ML's of Isovue 370 contrast material. Reconstructed coronal and sagittal images were created and reviewed. Delayed axial images were obtained through the abdomen and pelvis. Some additional further delayed axial images were obtained through the urinary bladder. No oral contrast was given. Findings: The CT licensed mass real estate appraiser image reveals minimal elevation of the right hemidiaphragm. The lung bases are essentially clear, except for some minimal posterior dependent atelectatic changes at the right lung base. No pleural fluid is seen. The heart size is normal. The liver appears of unremarkable size and uniform attenuation. Surgical clips consistent with prior cholecystectomy are seen within the right quadrant. There is minimal central intrahepatic biliary duct prominence, likely due to the patient's prior cholecystectomy. The spleen appears of normal size and reveals no mass. The pancreas and adrenal glands appear unremarkable. The kidneys are of average size and shape. No renal calculi or renal mass is seen. Both kidneys function on delayed images. There is mild pelviectasis within both renal zak, right slightly greater than left. Portions of both ureters are opacified which appear unremarkable. No ureteral stone is seen. The urinary bladder appears grossly unremarkable. A ureteral jet is seen on the right on the delay images. No evidence of abdominal aortic aneurysm or abnormal retroperitoneal lymphadenopathy. No ventral bowel containing hernia or free intraperitoneal air is seen. There is minimal protrusion of intra-abdominal fat into the subcutaneous fat at the level the umbilicus on midline sagittal image #102. The bowel is not distended and there is no bowel wall thickening. The appendix is seen within the right lower quadrant appears unremarkable. The uterus is anteflexed. There is a new uterine contraceptive device in place. Correlate clinically. The urinary bladder is moderately distended, but otherwise unremarkable. This might explain the patient's mild renal pelviectasis. No definite ovarian abnormality is seen. No abnormal pelvic lymphadenopathy or free intraperitoneal fluid is seen. Skeleton reveals no fracture or aggressive bone lesion. Impression: 1. I see no evidence of appendicitis within the right lower quadrant. 2. Mild bilateral renal pelviectasis is seen, right greater than left. This may be explained by moderate urinary bladder distention. I see no evidence of renal or ureteral stones. No urinary bladder stone is seen. Enhancement of the renal parenchyma is homogeneous without mass. 3. Status post cholecystectomy. 4. There is a new uterine contraceptive device in place. Correlate clinically. 5. No other acute process is seen within the abdomen or pelvis.
[2021-03-12] MEDS: Cymbalta 30 MG Capsule PO SCH (11:34)
[2021-03-12] MEDS: TYLENOL 325 MG PO PRN (17:04)
[2021-03-12] MEDS ORDERED: ROCEPHIN 2 Gm-D5w 50ML BAG** 2 G/50 ML IVPB IV SCH (22:00)
[2021-03-13] MEDS: Sodium Chloride 0.9% W/ 20 mEq KCl/LITER 1,000 ML IV SCH ×3 (00:36→17:32)
[2021-03-13] MEDS: Zofran 4 MG/2 ML VIAL IV PRN ×3 (02:12→14:27)
[2021-03-13] MEDS: Hydromorphone 1 mg/ml Injection IV PRN ×6 (02:12→22:06)
[2021-03-13 06:05] LABS: BASOPHIL % 0.4 % (0.0-0.4); Basophil (Absolute #) 0.02 (0-0.4); Eosinophil % 1.9 % (0.00-5.0); Hematocrit 35.2 % (35-47); Hemoglobin 10.7 gm/dl (12.0-16.0); Lymphocyte (Absolute #) 2.05 (1.0-4.6); Lymphocytes % 39.8 % (24.0-44.0); Mean Cell Volume 82.6 fl (78-100); Mean Corpuscular Hemoglobin 25.1 pg (26-32); Mean Corpuscular Hgb Concent. 30.4 g/dl (32-36); Mean Platelet Volume 9.5 fl (7.5-11.0); Monocyte (Absolute #) 0.58 (0.0-1.3); Monocytes % 11.3 % (0.0-12.0); Neutrophil % 46.6 % (36.0-66.0); Platelet Count 318 K/mm3 (150-450); Red Blood Count 4.26 M/mm3 (4.1-5.4); Red Cell Distribution Width 14.2 % (11.5-14.0); White Blood Count 5.2 K/mm3 (4.0-10.5)
[2021-03-13 06:28] LABS: ALBUMIN 3.6 g/dL (3.5-5.0); ALKALINE PHOSPHATASE 84 U/L (38-126); ANION GAP 11.7 MEQ/L (5-15); BILIRUBIN,TOTAL < 0.10 mg/dL (0.2-1.3); BLOOD UREA NITROGEN 6 mg/dL (7-17); CHLORIDE 106 mmol/L (98-107); Calcium 8.7 mg/dL (8.4-10.2); Carbon Dioxide 27 mmol/L (22-30); Creatinine 1 0.64 mg/dL (0.52-1.04); EST GLOMERULAR FILTRATION RATE > 60.0 ML/MIN; Glucose 97 mg/dL (74-106); Potassium 4.1 mmol/L (3.5-5.1); SGOT/AST 28 U/L (14-36); SGPT/ALT 21 U/L (0-35); SODIUM 140 mmol/L (137-145); Total Protein 6.7 g/dL (6.3-8.2)
[2021-03-13] MEDS: Cymbalta 30 MG Capsule PO SCH (07:42)
[2021-03-13] MEDS: TYLENOL 325 MG PO PRN ×2 (07:42→17:33)
[2021-03-13] MEDS: PROTONIX 40 MG IV IV SCH (07:43)
--- NOTE | 2021-03-13 08:40 | PCM.NOTE ---
Date and Time: 03/13/21834 Subjective Assessment: She is still having R sided back pain the radiates to her RLQ. The pain med works for about 3 hours. - Review of Systems Constitutional: No Fever Abdominal/Gastrointestinal: Abdominal Pain Objective Exam General Appearance: mild distress, obese Neurologic Exam: alert, oriented x 3 Skin Exam: normal color, warm, dry, No rash Eye Exam: eyes nml inspection Ears, Nose, Throat Exam: moist mucous membranes Neck Exam: normal inspection Respiratory Exam: normal breath sounds, lungs clear, No crackles/rales, No rhonchi, No wheezing Cardiovascular Exam: regular rate/rhythm, normal heart sounds, No murmur Gastrointestinal/Abdomen Exam: soft, normal bowel sounds, tenderness (RLQ, RUQ), No distention, No mass, No guarding, No rebound Extremity Exam: normal inspection, No pedal edema, No swelling Back Exam: normal inspection, No rash OBJECTIVE DATA Vital Signs: Vital Signs - 24 hr Temp Pulse Resp BP Pulse Ox 03/13/21 07:28 98.0 F 92 H 16 100/60 98 03/13/21 04:00 98.0 F 94 H 18 113/56 98 03/13/21 00:13 98.2 F 83 17 129/60 98 03/12/21 20:00 98.4 F 101 H 17 123/69 100 03/12/21 16:00 98.0 F 104 H 20 117/70 99 03/12/21 12:00 98.0 F 88 16 117/74 100 Pain Assessment - Last Documented Pain Intensity 7 Pain Scale Used 0-10 Pain Scale Intake and Output: Intake & Output 03/10/21 03/11/21 03/12/21 03/13/21 11:59 11:59 11:59 11:59 Intake Total 701 3641 Output Total 1050 3850 Balance -349 -209 Weight 89.8 kg Lab Results: Lab Results-Last 24 Hours 03/13/21 03/13/21 Range/Units 05:55 05:55 WBC 5.2 (4.0-10.5) K/mm3 RBC 4.26 (4.1-5.4) M/mm3 Hgb 10.7 L (12.0-16.0) gm/dl Hct 35.2 (35-47) % MCV 82.6 (78-100) fl MCH 25.1 L (26-32) pg MCHC 30.4 L (32-36) g/dl RDW 14.2 H (11.5-14.0) % Plt Count 318 (150-450) K/mm3 MPV 9.5 (7.5-11.0) fl Gran % 46.6 (36.0-66.0) % Eos # (Auto) 0.10 (0-0.5) Absolute Lymphs (auto) 2.05 (1.0-4.6) Absolute Monos (auto) 0.58 (0.0-1.3) Lymphocytes % 39.8 (24.0-44.0) % Monocytes % 11.3 (0.0-12.0) % Eosinophils % 1.9 (0.00-5.0) % Basophils % 0.4 (0.0-0.4) % Absolute Granulocytes 2.40 (1.4-6.9) Basophils # 0.02 (0-0.4) Sodium 140 (137-145) mmol/L Potassium 4.1 (3.5-5.1) mmol/L Chloride 106 (98-107) mmol/L Carbon Dioxide 27 (22-30) mmol/L Anion Gap 11.7 (5-15) MEQ/L BUN 6 L (7-17) mg/dL Creatinine 0.64 (0.52-1.04) mg/dL Estimated GFR > 60.0 ML/MIN Glucose 97 (74-106) mg/dL Calcium 8.7 (8.4-10.2) mg/dL Total Bilirubin < 0.10 L (0.2-1.3) mg/dL AST 28 (14-36) U/L ALT 21 (0-35) U/L Alkaline Phosphatase 84 (38-126) U/L Serum Total Protein 6.7 (6.3-8.2) g/dL Albumin 3.6 (3.5-5.0) g/dL Radiology Exams: Radiology Procedures Category Date Time Status ABDOMEN AND PELVIS W CONTRAST [CT] Stat Exams 03/11/21 19:30 Completed Assessment/Plan (1) Pyelonephritis Current Visit: Yes Status: Acute Assessment & Plan: Not feeling any better - will add Zosyn to rocephin (day #3 rocephin). Final culture will be back tomorrow (Sat) per lab. Code(s): N12 - TUBULO-INTERSTITIAL NEPHRITIS, NOT [facility] ACUTE OR CHRONIC
[2021-03-13] MEDS: Zosyn 3.375 GM Vial 3.375 GM in Sodium Chloride 100ML MINI-BAG PLUS 100 ML IV SCH ×2 (13:07→17:32)
[2021-03-14] MEDS: Zosyn 3.375 GM Vial 3.375 GM in Sodium Chloride 100ML MINI-BAG PLUS 100 ML IV SCH ×3 (00:29→11:18)
[2021-03-14] MEDS: TYLENOL 325 MG PO PRN ×2 (00:29→08:59)
[2021-03-14] MEDS: Sodium Chloride 0.9% W/ 20 mEq KCl/LITER 1,000 ML IV SCH ×2 (02:41→10:13)
[2021-03-14] MEDS: Hydromorphone 1 mg/ml Injection IV PRN (02:44)
[2021-03-14] MEDS: NORCO 7.5/325 MG TAB PO PRN ×3 (06:04→15:41)
[2021-03-14] MEDS: Zofran 4 MG/2 ML VIAL IV PRN ×2 (06:12→10:12)
[2021-03-14] MEDS: PROTONIX 40 MG IV IV SCH (09:00)
[2021-03-14] MEDS: Cymbalta 30 MG Capsule PO SCH (09:00)
[2021-03-14 09:19] LABS: Appearance CLEAR (CLEAR); Bilirubin NEGATIVE (NEGATIVE); Blood NEGATIVE Ery/ul (0-5); Epithelial Cells RARE /HPF (FEW); Glucose NEGATIVE (NEGATIVE); Ketones NEGATIVE (NEGATIVE); Leukocyte Esterase NEGATIVE (NEGATIVE); Nitrite NEGATIVE (NEGATIVE); Protein,Urine Dip NEGATIVE (Negative); Specific Gravity 1.009 (1.005-1.025); Urobilinogen NEGATIVE mg/dL (0-1)
[2021-03-14 16:59] VITALS: BP 123/69; PULSE 88; O2SAT 97
--- NOTE | 2021-03-14 17:01 | PCM.DS ---
Discharge Summary Date of Admission: 03/12/21 00:00 Date of Discharge: 03/14/2021 Admitting Physician: FABIAN GREER Primary Care Provider: FABIAN GREER Allergies Allergies Bleach Allergy (Uncoded 03/11/21 19:28) verified 06/01/16 Hospital Summary - Hospital Course Hospital Course: Pt. admitted on 03/12/21, pt. started on iv abx, although labs quickly returned normal, pt.still bitterly complained of pain on 03/13. Pt. abx were changed, later c and s returned showing she is and was on appropriate abx but kept in hospital for complaints of pain, this am the patient was changed from iv to po antibiotics, labs remained normal. Pt. tolerated pain with po medications and insurance utilization noted she would no longer qualify for hospital admission at this time the patient will be discharged to home on po augmentin noted to be sensitive to this and po lortab for 5 days. Pt. agrees with discharge plan. - Vitals & Intake/Output Vital Signs: Vital Signs Temperature 98.1 F 03/14/21 07:54 Pulse Rate 86 03/14/21 12:00 Respiratory Rate 18 03/14/21 12:00 Blood Pressure 122/70 03/14/21 12:00 O2 Sat by Pulse Oximetry 98 03/14/21 12:00 Intake & Output: Intake & Output 03/12/21 03/13/21 03/14/21 03/15/21 11:59 11:59 11:59 11:59 Intake Total 701 3641 4376 1600 Output Total 1050 3850 4250 1100 Balance -349 -209 126 500 Weight 89.8 kg 90.2 kg - Lab Result Diagrams: 03/13/21 05:55 03/13/21 05:55 Lab Results-Last 24 Hrs: Lab Results-Last 24 Hours 03/14/21 Range/Units 09:11 Urine Color STRAW (YELLOW) Urine Appearance CLEAR (CLEAR) Urine pH 6.0 (5-6) Ur Specific [place] 1.009 (1.005-1.025) Urine Protein NEGATIVE (Negative) Urine Ketones NEGATIVE (NEGATIVE) Urine Blood NEGATIVE (0-5) Felipe/ul Urine Nitrite NEGATIVE (NEGATIVE) Urine Bilirubin NEGATIVE (NEGATIVE) Urine Urobilinogen NEGATIVE (0-1) mg/dL Ur Leukocyte Esterase NEGATIVE (NEGATIVE) Urine WBC (Auto) NONE (0-5) /HPF Urine RBC (Auto) NONE (0-2) /HPF U Epithel Cells (Auto) RARE (FEW) /HPF Urine Bacteria (Auto) NONE (NEGATIVE) /HPF Urine Culture Reflexed NO (NO) Urine Glucose NEGATIVE (NEGATIVE) mg/dL Micro Results-Entire Visit: Microbiology 03/11/21 19:31 Urine Culture - Final Urine, Void Escherichia Coli 03/11/21 20:25 Blood Culture - Preliminary Blood NO GROWTH TO DATE 03/11/21 20:27 Blood Culture - Preliminary Blood NO GROWTH TO DATE Discharge Exam General Appearance: no apparent distress, alert Neurologic Exam: alert, oriented x 3, cooperative, normal mood/affect, nml cerebellar function, sensation nml, No motor deficits Eye Exam: PERRL, EOMI, eyes nml inspection Ears, Nose, Throat Exam: normal ENT inspection, pharynx normal, moist mucous membranes Neck Exam: normal inspection, non-tender, supple, full range of motion Respiratory Exam: normal breath sounds, lungs clear, No respiratory distress Cardiovascular Exam: regular rate/rhythm, normal heart sounds Gastrointestinal/Abdomen Exam: soft (right flank pain noted.), No tenderness, No mass Pelvic Exam: deferred Rectal Exam: deferred Back Exam: normal inspection, normal range of motion, No CVA tenderness, No vertebral tenderness Extremity Exam: normal inspection, normal range of motion Skin Exam: normal color, warm, dry Final Diagnosis/Problem List - Final Discharge Diagnosis/Problem (1) Acute pyelonephritis Current Visit: Yes Status: Acute Code(s): N10 - ACUTE PYELONEPHRITIS (2) Acute right flank pain Current Visit: Yes Status: Acute Code(s): R10.9 - UNSPECIFIED ABDOMINAL PAIN - Discharge Discharge Date: 03/14/21 Disposition: Home, Self-Care Condition: Stable Prescriptions: No Action Duloxetine HCl [Cymbalta] 60 mg PO DAILY Follow up with: FABIAN GREER [Primary Care Provider] - Forms: Patient Portal Information
== END 2021-03-14 17:38 | disposition home or self-care (01) ==
LOC: ED 19:06 → MED SURG 03-12
PROVIDERS: ADMIT Family Medicine; ATTEND Family Medicine
DX: N10 Acute pyelonephritis (principal); R10.11 Right upper quadrant pain; Z20.828 Contact with and (suspected) exposure to other viral communicable diseases; Z79.899 Other long term (current) drug therapy
CPT/HCPCS: 36000; 36415; 74177; 80053; 81001; 83690; 85025; 87040; 87077; 87086; 87186; 96360; 96365; 96374; 96375; 96376; 99284; G0378; U0003; J0696; J1170; J1885; J2270; J2405; A9270-GY

== ENCOUNTER 2021-08-20 19:52 | Emergency (ER) | payer OTHER ==
[2021-08-20] MEDS ORDERED: Rocephin 500 MG INJ IM ONE (20:13)
[2021-08-20] MEDS ORDERED: TORAdol 30 mg Injection IV ONE (20:14)
[2021-08-20] MEDS ORDERED: XYLOCAINE 1% HCL 20 ML MDV ONE (20:16)
[2021-08-20] MEDS ORDERED: Rocephin 500 MG INJ ONE (20:16)
[2021-08-20] MEDS ORDERED: TORAdol 30 mg Injection ONE (20:16)
--- NOTE | 2021-08-20 20:17 | ERPHSYRPT ---
- History of Present Illness Time Seen by Provider: 08/20/21 20:00 Source: patient Physician History: Patient is a 31-year-old female presents to our ED for evaluation of right ear pain. Patient states she has had a URI symptoms for the past week. However patient's right ear began to experience pain this morning. Patient observed a blood-tinged discharge from her right ear. No pain at the mastoid process. No trauma. No fever. No nausea or vomiting. No headache. Pain described as an ache that is localized. No radiation. Pain is constant. Patient otherwise feels well. She voices no other complaints or concerns at this time. Timing/Duration: today Severity: moderate Modifying Factors: Improves With: nothing Associated Symptoms: No nausea, No vomiting, No abdominal pain, No shortness of breath, No diaphoresis, No cough, No chills, No chest pain, No fever, No headaches, No loss of appetite, No malaise, No syncope Allergies/Adverse Reactions: Bleach Allergy (Uncoded 08/20/21 19:59) verified 06/01/16 Home Medications: Duloxetine HCl [Cymbalta] 60 mg PO DAILY 01/19/21 [History] Hx Tetanus, Diphtheria Vaccination/Date Given: Yes Hx Influenza Vaccination/Date Given: No Hx Pneumococcal Vaccination/Date Given: No Travel Risk - Vaccine Status Have you recieved a Covid-19 vaccination: No - Review of Systems Constitutional: No Symptoms, No Fever, No Chills Eyes: No Symptoms Ears, Nose, & Throat: No Symptoms Respiratory: No Symptoms, No Cough, No Dyspnea Cardiac: No Symptoms, No Chest Pain, No Edema, No Syncope Abdominal/Gastrointestinal: No Symptoms, No Abdominal Pain, No Nausea, No Vomiting, No Diarrhea Genitourinary Symptoms: No Symptoms, No Dysuria Musculoskeletal: No Symptoms, No Back Pain, No Neck Pain Skin: No Symptoms, No Rash Neurological: No Symptoms, No Dizziness, No Focal Weakness, No Sensory Changes Psychological: No Symptoms Endocrine: No Symptoms Hematologic/Lymphatic: No Symptoms Immunological/Allergic: No Symptoms All Other Systems: Reviewed and Negative - Past Medical History Pertinent Past Medical History: Yes Neurological History: Migraines ENT History: No Pertinent History Cardiac History: No Pertinent History Respiratory History: Asthma Endocrine Medical History: No Pertinent History Musculoskeletal History: Other GI Medical History: Gallbladder Disease History: No Pertinent History Psycho-Social History: Anxiety, Depression Female Reproductive Disorders: No Pertinent History Other Medical History: "Chronic Calcium deficiency". anemia - Past Surgical History Past Surgical History: Yes Neuro Surgical History: No Pertinent History Cardiac: No Pertinent History Respiratory: No Pertinent History Gastrointestinal: Cholecystectomy Genitourinary: No Pertinent History Musculoskeletal: No Pertinent History Female Surgical History: Dilation & Curettage, Tubal Ligation, Other Other Surgical History: ablation 01/27/21 - Social History Smoking Status: Former smoker How long have you smoked: 11 Exposure to second hand smoke: Yes Drug Use: none Patient Lives Alone: No - Nursing Vital Signs Nursing Vital Signs: Initial Vital Signs Temperature 98.3 F 08/20/21 19:59 Pulse Rate 128 H 08/20/21 19:59 Respiratory Rate 22 08/20/21 19:59 Blood Pressure 125/96 08/20/21 19:59 O2 Sat by Pulse Oximetry 98 08/20/21 19:59 Pain Scale Pain Intensity 8 - Physical Exam General Appearance: no apparent distress, alert Eye Exam: PERRL/EOMI, eyes nml inspection Ears, Nose, Throat Exam: normal ENT inspection, TMs normal, pharynx normal, moist mucous membranes, other (Fluid-filled blisters in the right tympanic membrane. No mastoid tenderness.) Neck Exam: normal inspection, non-tender, supple, full range of motion Respiratory Exam: normal breath sounds, lungs clear, airway intact, No respiratory distress Cardiovascular Exam: regular rate/rhythm, normal heart sounds, normal peripheral pulses Gastrointestinal/Abdomen Exam: soft, normal bowel sounds, No tenderness, No mass Back Exam: normal inspection, normal range of motion, No CVA tenderness, No vertebral tenderness Extremity Exam: normal inspection, normal range of motion, pelvis stable Neurologic Exam: alert, oriented x 3, cooperative, normal mood/affect, nml cerebellar function, nml station & gait, sensation nml, No motor deficits Skin Exam: normal color, warm, dry, No rash Lymphatic Exam: No adenopathy SpO2 Interpretation: normal SpO2: 98 O2 Delivery: Room Air Ordered Tests: Medication Summary Discontinued Medications Generic Name Dose Route Start Last Admin Trade Name Freq PRN Reason Stop Dose Admin Ceftriaxone Sodium 500 mg 08/20/21 20:13 08/20/21 20:21 Ceftriaxone Sodium 500 Mg Vial IM 08/20/21 20:14 500 mg STAT ONE Administration Ceftriaxone Sodium Confirm 08/20/21 20:16 Ceftriaxone Sodium 500 Mg Vial Administered 08/20/21 20:17 Dose 500 mg .ROUTE .STK-MED ONE Ketorolac Tromethamine 30 mg 08/20/21 20:14 08/20/21 20:20 Ketorolac Tromethamine 30 Mg/Ml Inj IV 08/20/21 20:15 Not Given STAT ONE Ketorolac Tromethamine Confirm 08/20/21 20:16 Ketorolac Tromethamine 30 Mg/Ml Inj Administered 08/20/21 20:17 Dose 30 mg .ROUTE .STK-MED ONE Ketorolac Tromethamine 30 mg 08/20/21 20:20 08/20/21 20:20 Ketorolac Tromethamine 30 Mg/Ml Inj IM 08/20/21 20:21 30 mg STAT ONE Administration Lidocaine HCl Confirm 08/20/21 20:16 Lidocaine Hcl 1% 20 Ml Mdv 20 Ml Ml Administered 08/20/21 20:17 Dose 1 ml .ROUTE .STK-MED ONE - Progress Progress: improved Progress Note: Patient reassessed. Pain improved. Vitals stable. It appears that patient has a bullous myringitis given the small fluid-filled blisters at the right eardrum. No mastoid tenderness. Patient received an oral dose of antibiotics. A prescription for the same was for the patient's pharmacy. Pain medication administered. Patient states she is ready for discharge. She voices no other complaints or concerns at this time. Portions of this note were created with voice recognition technology. There may be grammatical, spelling, punctuation or sound alike errors 08/21/21 01:33 Counseled pt/family regarding: diagnosis, need for follow-up - Departure Departure Disposition: Home Clinical Impression: Bullous myringitis of right ear Condition: Stable Critical Care Time: No Referrals: FABIAN WILLARD [Primary Care Provider] - Follow up/PCP as directed Instructions: Outer Ear Infection Additional Instructions: Discharge/Care Plan BLAKEPREMAJATINDER WARD was seen on 08/20/21 in the Emergency Room. The patient was counseled regarding Diagnosis,Lab results, Imaging studies, need for follow up and when to return to the Emergency Room. Prescriptions given: Discharge Note I have spoken with the patient and/or caregivers. I have explained the patient's condition, diagnosis and treatment plan based on the information available to me at this time. I have answered the patient's and/or caregiver's questions and addressed any concerns. The patient and/or caregivers have as good understanding of the patient's diagnosis, condition and treatment plan as can be expected at this point. The vital signs have been stable. The patient's condition is stable and appropriate for discharge from the emergency department. The patient will pursue further outpatient evaluation with the primary care physician or other designated or consulting physician as outlined in the discharge instructions. The patient and/or caregivers are agreeable to this plan of care and follow-up instructions have been explained in detail. The patient and/or caregivers have received these instruction. The patient/and or caregivers are aware that any significant change in condition or worsening of symptoms should prompt an immediate return to this or the closest emergency department or call 911. Prescriptions: Amox Tr/Potass Clav. 875 mg [Augmentin 875-125 Tablet] 875 mg PO BID 14 Days #14 tablet Ketorolac Tromethamine [Toradol] 10 mg PO TID 5 Days #15 tablet
[2021-08-20] MEDS ORDERED: TORAdol 30 mg Injection IM ONE (20:20)
[2021-08-20 20:32] VITALS: BP 118/84; PULSE 100
[2021-08-21 01:30] VITALS: O2SAT 98
== END 2021-08-20 20:31 | disposition home or self-care (01) ==
LOC: ED 19:52
DX: H73.011 Bullous myringitis, right ear (principal); H92.11 Otorrhea, right ear
CPT/HCPCS: 96372; 99284; J0696; J1885

== ENCOUNTER 2022-03-05 17:46 | Emergency (ER) | payer OTHER ==
[2022-03-05] MEDS ORDERED: TORAdol 30 mg Injection IM ONE (18:32)
[2022-03-05] MEDS ORDERED: TORAdol 30 mg Injection ONE (18:45)
--- NOTE | 2022-03-05 19:31 | ERPHSYRPT ---
- History of Present Illness Time Seen by Provider: 03/05/22 18:12 Source: patient Exam Limitations: no limitations Patient Subjective Stated Complaint: pt to ER for workmans comp injury. pt was sitting at a desk today and reached up and over to grab something and felt her shoulder "pop" and then had a sensation that radiated up her neck and down her arm. pt states she has numbness /tingling feeling in her fingers. Triage Nursing Assessment: pt ambulatory, A&Ox4. skin pwd. appears to be in no distress. pt to ER for right shoulder pain/injury that happened today at work. pt has pain in shoulder/neck and down arm. Physician History: 31 years old female presented in the ER with chief complaint of right shoulder pain sudden onset almost 2:30 PM today while she was sitting on a desk, reached across overhead and heard a popping sound and since then having sharp shooting pain moderate to severe intensity radiating up towards the neck and down on the arm with some tingling sensation in the fingers. No weakness in the right upper extremity. Limited range of motion all over right shoulder. Occurred: this afternoon Method of Injury: twisted Severity of Pain-Max: severe Severity of Pain-Current: moderate Extremities Pain Location: shoulder: right Modifying Factors: Worsens With: movement Allergies/Adverse Reactions: Bleach Allergy (Uncoded 08/20/21 19:59) verified 06/01/16 Home Medications: Duloxetine HCl [Cymbalta] 90 mg PO DAILY 03/05/22 [History] Topiramate 50 mg PO DAILY 03/05/22 [History] Hx Tetanus, Diphtheria Vaccination/Date Given: Yes Hx Influenza Vaccination/Date Given: No Hx Pneumococcal Vaccination/Date Given: No Travel Risk - International Travel Have you traveled outside of the country in past 3 weeks: No - Coronavirus Screening Are you exhibiting any of the following symptoms?: No - Vaccine Status Have you recieved a Covid-19 vaccination: No - Review of Systems Constitutional: No Symptoms Eyes: No Symptoms Ears, Nose, & Throat: No Symptoms Respiratory: No Symptoms Cardiac: No Symptoms Abdominal/Gastrointestinal: No Symptoms Musculoskeletal: Joint Pain Skin: No Symptoms Neurological: No Symptoms Hematologic/Lymphatic: No Symptoms Immunological/Allergic: No Symptoms - Past Medical History Pertinent Past Medical History: Yes Neurological History: Migraines ENT History: No Pertinent History Cardiac History: No Pertinent History Respiratory History: Asthma Endocrine Medical History: No Pertinent History Musculoskeletal History: Other GI Medical History: Gallbladder Disease History: No Pertinent History Psycho-Social History: Anxiety, Depression Female Reproductive Disorders: No Pertinent History Other Medical History: "Chronic Calcium deficiency". anemia - Past Surgical History Past Surgical History: Yes Neuro Surgical History: No Pertinent History Cardiac: No Pertinent History Respiratory: No Pertinent History Gastrointestinal: Cholecystectomy Genitourinary: No Pertinent History Musculoskeletal: No Pertinent History Female Surgical History: Dilation & Curettage, Tubal Ligation, Other Other Surgical History: ablation 01/27/21 - Social History Smoking Status: Former smoker How long have you smoked: 11 Exposure to second hand smoke: Yes Drug Use: none Patient Lives Alone: No - Female History Hx Last Menstrual Period: 12/2020 Hx Now: No - Nursing Vital Signs Nursing Vital Signs: Initial Vital Signs Temperature 97.6 F 03/05/22 18:01 Pulse Rate 85 03/05/22 18:01 Respiratory Rate 16 03/05/22 18:01 Blood Pressure 112/81 03/05/22 18:01 O2 Sat by Pulse Oximetry 99 03/05/22 18:01 Pain Scale Pain Intensity 7 - Physical Exam General Appearance: no apparent distress Eyes, Ears, Nose, Throat Exam: normal ENT inspection Neck Exam: normal inspection, non-tender, supple, full range of motion, No limited range of motion Cardiovascular/Respiratory Exam: chest non-tender, normal breath sounds, regular rate/rhythm Shoulder Exam: normal inspection, no evidence of injury, limited ROM (Right shoulder in all directions.), soft tissue tenderness, No bone tenderness Elbow/Forearm Exam: normal inspection, non-tender, no evidence of injury Wrist Exam: normal inspection, normal ROM Hand Exam: normal inspection, normal ROM Neuro/Tendon Exam: normal sensation, normal motor functions Mental Status Exam: alert, oriented x 3, cooperative Skin Exam: normal color SpO2 Interpretation: normal SpO2: 99 O2 Delivery: Room Air Ordered Tests: Active Orders 24 hr Category Date Time Status SHOULDER Stat Exams 03/05/22 19:16 Taken Medication Summary Discontinued Medications Generic Name Dose Route Start Last Admin Trade Name Freq PRN Reason Stop Dose Admin Ketorolac Tromethamine 30 mg 03/05/22 18:32 03/05/22 18:46 Ketorolac Tromethamine 30 Mg/Ml Inj IM 03/05/22 18:33 30 mg STAT ONE Administration Ketorolac Tromethamine Confirm 03/05/22 18:45 Ketorolac Tromethamine 30 Mg/Ml Inj Administered 03/05/22 18:46 Dose 30 mg .ROUTE .STK-MED ONE - Progress Progress: improved, pain not gone completely Progress Note: 03/05/22 19:30 She is given symptomatic treatment for pain, on reevaluation feeling better but still have limited range of motion to some extent. No dislocation or fracture noticed on x-ray reviewed by me, official report is pending. She is given sling and NSAIDs for pain relief and outpatient orthopedic surgery follow-up. Counseled pt/family regarding: diagnosis, need for follow-up, rad results - Departure Departure Disposition: Home Clinical Impression: Acute shoulder pain Condition: Stable Critical Care Time: No Referrals: FABIAN WILLARD [Primary Care Provider] - Follow Up with PCP/3 days JEANNA - [employer] [employer] [facility] [NON-STAFF PHY W/O PRIVILEGES] - Follow up/PCP as directed (Tuesday for reevaluation) Instructions: Shoulder Sprain (DC), Shoulder Tendinopathy (DC) Additional Instructions: Take Tylenol/ibuprofen as needed. Avoid exertional activity with right upper extremity. Follow-up with primary care and orthopedic surgery for reevaluation. Return to ER for worsening pain, limited range of motion, numbness or weakness of right upper extremity. Prescriptions: Ibuprofen 600 mg PO Q6HPRN PRN 10 Days #20 tablet PRN Reason: Pain
[2022-03-05 19:43] VITALS: BP 126/90; PULSE 76; O2SAT 97
--- NOTE | 2022-03-06 07:24 | XRAY ---
Indication: Pain. Limited range of motion. Comparison: August 08, 2011. 3 view right shoulder demonstrates minimal right lung base subsegmental atelectasis/scarring. No other bony, articular, or soft tissue abnormalities.
== END 2022-03-05 19:43 | disposition home or self-care (01) ==
LOC: ED 17:46
DX: M25.511 Pain in right shoulder (principal); X50.0XXA Overexertion from strenuous movement or load, initial encounter; Y99.0 Civilian activity done for income or pay; Z28.310 Unvaccinated for COVID-19
CPT/HCPCS: 73030; 96372; 99284; J1885

== ENCOUNTER 2022-06-22 07:36 | Inpatient (IN) | payer OTHER ==
[~2022-06-22 07:36] MED LIST: Pepcid 20 MG VIAL IV ONE; Reglan 10 MG/2 ML IV ONE; Sensorcaine 0.25% 10 ML ONE; Transderm Scop 1.5MG Patch TOP PRN
[2022-06-22] MEDS ORDERED: MEFOXIN 2 GM PREMIX** 2 GM/50 ML ML IV SCH (08:00)
[2022-06-22] MEDS ORDERED: MEFOXIN 2 GM PREMIX** 2 GM/50 ML ML IV ONE (08:11)
[2022-06-22] MEDS ORDERED: Pepcid 20 MG VIAL IV ONE (08:12)
[2022-06-22] MEDS ORDERED: Reglan 10 MG/2 ML ONE (08:12)
[2022-06-22] MEDS ORDERED: Versed 2 MG/2 ML Injection ONE ×2 (08:12→10:55)
[2022-06-22] MEDS ORDERED: Transderm Scop 1.5MG Patch ONE (08:12)
[2022-06-22] MEDS ORDERED: Lactated Ringers 1,000 ML IV ONE ×2 (08:12→11:46)
[2022-06-22] MEDS: Lactated Ringers 1,000 ML IV SCH ×2 (08:17→15:28)
[2022-06-22] MEDS ORDERED: Versed 2 MG/2 ML Injection IV ONE (08:30)
[2022-06-22 08:36] LABS: Hematocrit 38.5 % (35-47); Hemoglobin 12.7 g/dL (12.0-16.0); Mean Cell Volume 82.8 fL (78-100); Mean Corpuscular Hemoglobin 27.3 pg (26-32); Mean Platelet Volume 9.5 fL (7.5-11.0); Platelet Count 279 x10^3/uL (150-450); Red Blood Count 4.65 x10^6/uL (4.1-5.4); White Blood Count 8.9 x10^3/uL (4.0-10.5)
[2022-06-22 08:59] LABS: ALBUMIN 4.2 g/dL (3.5-5.0); ALKALINE PHOSPHATASE 70 U/L (38-126); ANION GAP 8.6 MEQ/L (5-15); BLOOD UREA NITROGEN 6 mg/dL (7-17); CHLORIDE 107 mmol/L (98-107); Calcium 8.8 mg/dL (8.4-10.2); Carbon Dioxide 27 mmol/L (22-30); Creatinine 1 0.56 mg/dL (0.52-1.04); EST GLOMERULAR FILTRATION RATE > 60.0 ML/MIN; Glucose 107 mg/dL (74-106); Potassium 3.9 mmol/L (3.5-5.1); SGOT/AST 17 U/L (14-36); SGPT/ALT 19 U/L (0-35); SODIUM 139 mmol/L (137-145); Total Protein 7.1 g/dL (6.3-8.2)
[2022-06-22 09:18] LABS: INFLUENZA A NEGATIVE (NEGATIVE); INFLUENZA B NEGATIVE (NEGATIVE); RESPIRATORY SYNCTIAL VIRUS NEGATIVE (Negative); SARS-CoV-2 Xpert Express NEGATIVE (NEGATIVE)
[2022-06-22 09:20] LABS: ABO TYPING O; Antibody Screen NEGATIVE (NEGATIVE); RH TYPING NEGATIVE
[2022-06-22] MEDS ORDERED: Xylocaine-Mpf 2% 5 Ml Vial ONE (10:55)
[2022-06-22] MEDS ORDERED: Zofran 4 MG/2 ML VIAL ONE (10:55)
[2022-06-22] MEDS ORDERED: DIPRIVAN 200 MG/20 ML IV ONE (10:55)
[2022-06-22] MEDS ORDERED: Decadron 4 MG INJ ONE (10:55)
[2022-06-22] MEDS ORDERED: SUBLIMAZE 100 MCG/2 ML ONE (10:55)
[2022-06-22] MEDS ORDERED: Zemuron 100 MG/10 ML ONE (11:03)
[2022-06-22] MEDS ORDERED: Astramorph-Pf 5 MG/10 ML ONE (11:07)
[2022-06-22] MEDS ORDERED: Marcaine 0.5%/Epinephrine 10 ML ONE ×2 (12:57→13:00)
[2022-06-22] MEDS ORDERED: CLARITIN 10 MG PO PRN (13:00)
[2022-06-22] MEDS ORDERED: Nubain 10 MG/ML IV PRN (13:00)
[2022-06-22] MEDS ORDERED: Narcan 0.4 MG/ML IV PRN (13:00)
[2022-06-22] MEDS ORDERED: Zofran 4 MG/2 ML VIAL IV PRN ×2 (13:00→14:25)
[2022-06-22] MEDS ORDERED: Sodium Chloride 0.9% 10 ML FLUSH Syringe IJ PRN (13:00)
[2022-06-22] MEDS ORDERED: DEMEROL 50 MG IV PRN (13:00)
[2022-06-22] MEDS ORDERED: MORPHINE SULFATE 2 MG INJ IV PRN (13:00)
[2022-06-22] MEDS ORDERED: BRIDION 200MG/2ML IV ONE (13:29)
[2022-06-22] MEDS ORDERED: TORAdol 30 mg Injection IV PRN (14:29)
[2022-06-22] MEDS ORDERED: ZOFRAN ODT 4 MG PO PRN (14:32)
[2022-06-22] MEDS: PERCOCET TABLET 5/325MG PO PRN ×2 (14:43→20:19)
[2022-06-22] MEDS ORDERED: MEDICATION INTERVENTION MC SCH (14:45)
[2022-06-22 14:47] LABS: Appearance CLEAR (CLEAR); Bilirubin NEGATIVE (NEGATIVE); Dipstick done @ ? MAIN LAB; Glucose NEGATIVE (NEGATIVE); Ketones NEGATIVE (NEGATIVE); Nitrite NEGATIVE (NEGATIVE); Ph 6.5 (5-6); Protein,Urine Dip NEGATIVE (Negative); RBC TRACE-INTACT Ery/ul (0-5); Specific Gravity 1.015 (1.005-1.025); Urobilinogen 0.2 mg/dL (0-1)
[2022-06-22 14:48] LABS: Epithelial Cells RARE /HPF (FEW); Mucus SLIGHT /HPF (NEGATIVE); RBC 0-2 /HPF (0-2); WBC 0-2 /HPF (0-5)
[2022-06-22] MEDS: BENADRYL 50 MG/ML IV PRN ×2 (15:31→22:19)
[2022-06-22] MEDS: Mylicon 80MG PO SCH ×2 (15:35→22:11)
[2022-06-22] MEDS: TOPIRAMATE PO SCH (16:18)
[2022-06-22] MEDS: MEFOXIN 2 GM PREMIX** 2 GM/50 ML ML IV SCH (17:39)
[2022-06-22 18:51] LABS: Hematocrit 39.3 % (35-47); Hemoglobin 12.7 g/dL (12.0-16.0); Mean Cell Volume 84.3 fL (78-100); Mean Corpuscular Hemoglobin 27.3 pg (26-32); Mean Corpuscular Hgb Concent. 32.3 g/dL (32-36); Mean Platelet Volume 9.6 fL (7.5-11.0); Platelet Count 273 x10^3/uL (150-450); Red Blood Count 4.66 x10^6/uL (4.1-5.4); Red Cell Distribution Width 12.8 % (11.5-14.0); White Blood Count 12.9 x10^3/uL (4.0-10.5)
[2022-06-22] MEDS: Reglan 10 MG/2 ML IV SCH (22:11)
[2022-06-22] MEDS: Docusate Sodium 100 MG PO SCH (22:11)
[2022-06-23] MEDS: MEFOXIN 2 GM PREMIX** 2 GM/50 ML ML IV SCH ×2 (00:01→06:08)
[2022-06-23] MEDS: Lactated Ringers 1,000 ML IV SCH (00:01)
[2022-06-23] MEDS ORDERED: MEFOXIN 2 GM PREMIX** 2 GM/50 ML ML IV ONE (02:31)
[2022-06-23] MEDS: PERCOCET TABLET 5/325MG PO PRN ×3 (03:47→12:48)
[2022-06-23 04:49] LABS: Hematocrit 36.2 % (35-47); Hemoglobin 11.5 g/dL (12.0-16.0); Mean Cell Volume 85.4 fL (78-100); Mean Corpuscular Hemoglobin 27.1 pg (26-32); Mean Corpuscular Hgb Concent. 31.8 g/dL (32-36); Mean Platelet Volume 10.1 fL (7.5-11.0); Platelet Count 297 x10^3/uL (150-450); Red Blood Count 4.24 x10^6/uL (4.1-5.4); Red Cell Distribution Width 13.1 % (11.5-14.0); White Blood Count 13.6 x10^3/uL (4.0-10.5)
[2022-06-23 04:53] LABS: ALBUMIN 3.7 g/dL (3.5-5.0); ALKALINE PHOSPHATASE 67 U/L (38-126); ANION GAP 9.6 MEQ/L (5-15); BLOOD UREA NITROGEN 5 mg/dL (7-17); CHLORIDE 107 mmol/L (98-107); Calcium 8.4 mg/dL (8.4-10.2); Carbon Dioxide 23 mmol/L (22-30); Creatinine 1 0.56 mg/dL (0.52-1.04); EST GLOMERULAR FILTRATION RATE > 60.0 ML/MIN; Glucose 166 mg/dL (74-106); SGOT/AST 21 U/L (14-36); SGPT/ALT 19 U/L (0-35); SODIUM 135 mmol/L (137-145); Total Protein 6.5 g/dL (6.3-8.2)
[2022-06-23] MEDS: Reglan 10 MG/2 ML IV SCH (06:09)
[2022-06-23] MEDS: Mylicon 80MG PO SCH (06:09)
[2022-06-23 07:25] VITALS: BP 116/58; PULSE 77; O2SAT 97
--- NOTE | 2022-06-23 07:46 | PCM.NOTE ---
Date and Time: 06/23/22743 Subjective Assessment: pod 1 sp lash pt resting in bed and doing well. able to ambulate and tolerate diet. vss afebrile abd; soft incision c/d/intact ext; no clubbing cyanosis or edema hgb; 11.5 cr 0.56 wbc; 13.6 a/p sp laparoscopic supracervical hysterectomy b/l salpingectomy dc soliman dc iv dc home today fu office in 2 wks OBJECTIVE DATA Vital Signs: Vital Signs - 24 hr Temp Pulse Resp BP BP Pulse Ox 06/23/22 07:24 97.6 F 77 16 116/58 97 06/23/22 04:00 96.9 F 64 18 95/53 95 06/23/22 00:00 97.7 F 93 H 18 87/52 97 06/22/22 19:52 97.3 F 89 18 111/61 94 L 06/22/22 19:50 94 L 06/22/22 17:48 97.8 F 104 H 15 108/60 98 06/22/22 17:47 97.6 F 78 16 103/60 98 06/22/22 17:46 97.5 F 94 H 15 109/58 95 06/22/22 17:44 97.3 F 105 H 16 105/58 98 06/22/22 17:43 97.7 F 100 H 16 104/55 97 06/22/22 17:42 97.7 F 100 H 16 113/59 97 06/22/22 15:24 97 06/22/22 08:24 98.4 F 109 H 18 121/56 97 06/22/22 08:11 98.4 F 109 H 18 121/56 97 06/22/22 07:59 98.4 F 109 H 18 121/56 97 Pain Assessment - Last Documented Pain Intensity [Bilateral] 4 Pain Intensity 6 Pain Scale Used 0-10 Pain Scale Intake and Output: Intake & Output 06/20/22 06/21/22 06/22/22 06/23/22 11:59 11:59 11:59 11:59 Intake Total 2172 Output Total 2049 Balance 122 Weight 90.1 kg Lab Results: Lab Results-Last 24 Hours 06/22/22 06/22/22 06/22/22 Range/Units 07:59 08:22 08:22 WBC 8.9 (4.0-10.5) x10^3/uL RBC 4.65 (4.1-5.4) x10^6/uL Hgb 12.7 (12.0-16.0) g/dL Hct 38.5 (35-47) % MCV 82.8 (78-100) fL MCH 27.3 (26-32) pg MCHC 33.0 (32-36) g/dL RDW 13.0 (11.5-14.0) % Plt Count 279 (150-450) x10^3/uL MPV 9.5 (7.5-11.0) fL Sodium 139 (137-145) mmol/L Potassium 3.9 (3.5-5.1) mmol/L Chloride 107 (98-107) mmol/L Carbon Dioxide 27 (22-30) mmol/L Anion Gap 8.6 (5-15) MEQ/L BUN 6 L (7-17) mg/dL Creatinine 0.56 (0.52-1.04) mg/dL Estimated GFR > 60.0 ML/MIN Glucose 107 H (74-106) mg/dL Calcium 8.8 (8.4-10.2) mg/dL Total Bilirubin 0.50 (0.2-1.3) mg/dL AST 17 (14-36) U/L ALT 19 (0-35) U/L Alkaline Phosphatase 70 (38-126) U/L Serum Total Protein 7.1 (6.3-8.2) g/dL Albumin 4.2 (3.5-5.0) g/dL Urinalys Dipstick Clnc Urine Color (YELLOW) Urine Appearance (CLEAR) Urine pH (5-6) Ur Specific [place] (1.005-1.025) POC Urine Protein Conf (Negative) Urine Ketones (NEGATIVE) Urine Nitrite (NEGATIVE) Urine Bilirubin (NEGATIVE) Urine Urobilinogen (0-1) mg/dL Urine Leukocytes (NEGATIVE) Urine WBC (Auto) (0-5) /HPF Urine RBC (Auto) (0-2) /HPF U Epithel Cells (Auto) (FEW) /HPF Urine Bacteria (Auto) Urine RBC (0-5) Felipe/ul Urine Mucus (Auto) (NEGATIVE) /HPF Urine Glucose (NEGATIVE) mg/dL Urine HCG, Qual NEGATIVE (Negative) Influenza Type A Ag (NEGATIVE) Influenza Type B Ag (NEGATIVE) RSV (PCR) (Negative) SARS-CoV-2 (PCR) (NEGATIVE) ABO Group Rh Factor Antibody Screen (NEGATIVE) 06/22/22 06/22/22 06/22/22 Range/Units 08:22 08:28 13:02 WBC (4.0-10.5) x10^3/uL RBC (4.1-5.4) x10^6/uL Hgb (12.0-16.0) g/dL Hct (35-47) % MCV (78-100) fL MCH (26-32) pg MCHC (32-36) g/dL RDW (11.5-14.0) % Plt Count (150-450) x10^3/uL MPV (7.5-11.0) fL Sodium (137-145) mmol/L Potassium (3.5-5.1) mmol/L Chloride (98-107) mmol/L Carbon Dioxide (22-30) mmol/L Anion Gap (5-15) MEQ/L BUN (7-17) mg/dL Creatinine (0.52-1.04) mg/dL Estimated GFR ML/MIN Glucose (74-106) mg/dL Calcium (8.4-10.2) mg/dL Total Bilirubin (0.2-1.3) mg/dL AST (14-36) U/L ALT (0-35) U/L Alkaline Phosphatase (38-126) U/L Serum Total Protein (6.3-8.2) g/dL Albumin (3.5-5.0) g/dL Urinalys Dipstick Clnc MAIN LAB Urine Color YELLOW (YELLOW) Urine Appearance CLEAR (CLEAR) Urine pH 6.5 (5-6) Ur Specific [place] 1.015 (1.005-1.025) POC Urine Protein Conf NEGATIVE (Negative) Urine Ketones NEGATIVE (NEGATIVE) Urine Nitrite NEGATIVE (NEGATIVE) Urine Bilirubin NEGATIVE (NEGATIVE) Urine Urobilinogen 0.2 (0-1) mg/dL Urine Leukocytes NEGATIVE (NEGATIVE) Urine WBC (Auto) 0-2 (0-5) /HPF Urine RBC (Auto) 0-2 (0-2) /HPF U Epithel Cells (Auto) RARE (FEW) /HPF Urine Bacteria (Auto) Not Reportable Urine RBC TRACE-INTACT (0-5) Felipe/ul Urine Mucus (Auto) SLIGHT (NEGATIVE) /HPF Urine Glucose NEGATIVE (NEGATIVE) mg/dL Urine HCG, Qual (Negative) Influenza Type A Ag NEGATIVE (NEGATIVE) Influenza Type B Ag NEGATIVE (NEGATIVE) RSV (PCR) NEGATIVE (Negative) SARS-CoV-2 (PCR) NEGATIVE (NEGATIVE) ABO Group O Rh Factor NEGATIVE Antibody Screen NEGATIVE (NEGATIVE) 06/22/22 06/23/22 06/23/22 Range/Units 18:49 04:21 04:21 WBC 12.9 H 13.6 H (4.0-10.5) x10^3/uL RBC 4.66 4.24 (4.1-5.4) x10^6/uL Hgb 12.7 11.5 L (12.0-16.0) g/dL Hct 39.3 36.2 (35-47) % MCV 84.3 85.4 (78-100) fL MCH 27.3 27.1 (26-32) pg MCHC 32.3 31.8 L (32-36) g/dL RDW 12.8 13.1 (11.5-14.0) % Plt Count 273 297 (150-450) x10^3/uL MPV 9.6 10.1 (7.5-11.0) fL Sodium 135 L (137-145) mmol/L Potassium 4.0 (3.5-5.1) mmol/L Chloride 107 (98-107) mmol/L Carbon Dioxide 23 (22-30) mmol/L Anion Gap 9.6 (5-15) MEQ/L BUN 5 L (7-17) mg/dL Creatinine 0.56 (0.52-1.04) mg/dL Estimated GFR > 60.0 ML/MIN Glucose 166 H (74-106) mg/dL Calcium 8.4 (8.4-10.2) mg/dL Total Bilirubin 0.30 (0.2-1.3) mg/dL AST 21 (14-36) U/L ALT 19 (0-35) U/L Alkaline Phosphatase 67 (38-126) U/L Serum Total Protein 6.5 (6.3-8.2) g/dL Albumin 3.7 (3.5-5.0) g/dL Urinalys Dipstick Clnc Urine Color (YELLOW) Urine Appearance (CLEAR) Urine pH (5-6) Ur Specific [place] (1.005-1.025) POC Urine Protein Conf (Negative) Urine Ketones (NEGATIVE) Urine Nitrite (NEGATIVE) Urine Bilirubin (NEGATIVE) Urine Urobilinogen (0-1) mg/dL Urine Leukocytes (NEGATIVE) Urine WBC (Auto) (0-5) /HPF Urine RBC (Auto) (0-2) /HPF U Epithel Cells (Auto) (FEW) /HPF Urine Bacteria (Auto) Urine RBC (0-5) Felipe/ul Urine Mucus (Auto) (NEGATIVE) /HPF Urine Glucose (NEGATIVE) mg/dL Urine HCG, Qual (Negative) Influenza Type A Ag (NEGATIVE) Influenza Type B Ag (NEGATIVE) RSV (PCR) (Negative) SARS-CoV-2 (PCR) (NEGATIVE) ABO Group Rh Factor Antibody Screen (NEGATIVE) Assessment/Plan (1) Menorrhagia Current Visit: Yes Status: Acute Code(s): N92.0 - EXCESSIVE AND FREQUENT MENSTRUATION WITH REGULAR CYCLE (2) S/P laparoscopic supracervical hysterectomy Current Visit: Yes Status: Acute Code(s): Z90.711 - ACQUIRED ABSENCE OF UTERUS WITH REMAINING CERVICAL STUMP
--- NOTE | 2022-06-23 07:51 | PCM.DS ---
Discharge Summary Date of Admission: 06/22/22 07:36 Admitting Physician: MARK HAAS DO Primary Care Provider: FABIAN WILLARD Allergies Allergies Bleach Allergy (Uncoded 06/22/22 07:55) Headache verified 06/01/16 Hospital Summary - Hospital Course Hospital Course: pt admitted on jun 22 for undergoing laparoscopic supracervical hysterectomy b/l salpingectomy secondary to menorrhagia failed ablation and underwent procedure without complication. during postop period did well able to ambulate and tolerate diet. incision healing well. hgb 11.5. pt at this time stable for discharge and was advised to fu in office in 2 wks for postop evaluation. all questions answered to her satisfaction. pt given norco for pain management and clindamycin for prophylaxis. - Vitals & Intake/Output Vital Signs: Vital Signs Temperature 97.6 F 06/23/22 07:24 Pulse Rate 77 06/23/22 07:24 Respiratory Rate 16 06/23/22 07:24 Blood Pressure 116/58 06/23/22 07:24 O2 Sat by Pulse Oximetry 97 06/23/22 07:24 Intake & Output: Intake & Output 06/20/22 06/21/22 06/22/22 06/23/22 11:59 11:59 11:59 11:59 Intake Total 2172 Output Total 2050 Balance 122 Weight 90.1 kg - Lab Result Diagrams: 06/23/22 04:21 06/23/22 04:21 Lab Results-Last 24 Hrs: Lab Results-Last 24 Hours 06/22/22 06/22/22 06/22/22 Range/Units 07:59 08:22 08:22 WBC 8.9 (4.0-10.5) x10^3/uL RBC 4.65 (4.1-5.4) x10^6/uL Hgb 12.7 (12.0-16.0) g/dL Hct 38.5 (35-47) % MCV 82.8 (78-100) fL MCH 27.3 (26-32) pg MCHC 33.0 (32-36) g/dL RDW 13.0 (11.5-14.0) % Plt Count 279 (150-450) x10^3/uL MPV 9.5 (7.5-11.0) fL Sodium 139 (137-145) mmol/L Potassium 3.9 (3.5-5.1) mmol/L Chloride 107 (98-107) mmol/L Carbon Dioxide 27 (22-30) mmol/L Anion Gap 8.6 (5-15) MEQ/L BUN 6 L (7-17) mg/dL Creatinine 0.56 (0.52-1.04) mg/dL Estimated GFR > 60.0 ML/MIN Glucose 107 H (74-106) mg/dL Calcium 8.8 (8.4-10.2) mg/dL Total Bilirubin 0.50 (0.2-1.3) mg/dL AST 17 (14-36) U/L ALT 19 (0-35) U/L Alkaline Phosphatase 70 (38-126) U/L Serum Total Protein 7.1 (6.3-8.2) g/dL Albumin 4.2 (3.5-5.0) g/dL Urinalys Dipstick Clnc Urine Color (YELLOW) Urine Appearance (CLEAR) Urine pH (5-6) Ur Specific [place] (1.005-1.025) POC Urine Protein Conf (Negative) Urine Ketones (NEGATIVE) Urine Nitrite (NEGATIVE) Urine Bilirubin (NEGATIVE) Urine Urobilinogen (0-1) mg/dL Urine Leukocytes (NEGATIVE) Urine WBC (Auto) (0-5) /HPF Urine RBC (Auto) (0-2) /HPF U Epithel Cells (Auto) (FEW) /HPF Urine Bacteria (Auto) Urine RBC (0-5) Felipe/ul Urine Mucus (Auto) (NEGATIVE) /HPF Urine Glucose (NEGATIVE) mg/dL Urine HCG, Qual NEGATIVE (Negative) Influenza Type A Ag (NEGATIVE) Influenza Type B Ag (NEGATIVE) RSV (PCR) (Negative) SARS-CoV-2 (PCR) (NEGATIVE) ABO Group Rh Factor Antibody Screen (NEGATIVE) 06/22/22 06/22/22 06/22/22 Range/Units 08:22 08:28 13:02 WBC (4.0-10.5) x10^3/uL RBC (4.1-5.4) x10^6/uL Hgb (12.0-16.0) g/dL Hct (35-47) % MCV (78-100) fL MCH (26-32) pg MCHC (32-36) g/dL RDW (11.5-14.0) % Plt Count (150-450) x10^3/uL MPV (7.5-11.0) fL Sodium (137-145) mmol/L Potassium (3.5-5.1) mmol/L Chloride (98-107) mmol/L Carbon Dioxide (22-30) mmol/L Anion Gap (5-15) MEQ/L BUN (7-17) mg/dL Creatinine (0.52-1.04) mg/dL Estimated GFR ML/MIN Glucose (74-106) mg/dL Calcium (8.4-10.2) mg/dL Total Bilirubin (0.2-1.3) mg/dL AST (14-36) U/L ALT (0-35) U/L Alkaline Phosphatase (38-126) U/L Serum Total Protein (6.3-8.2) g/dL Albumin (3.5-5.0) g/dL Urinalys Dipstick Clnc MAIN LAB Urine Color YELLOW (YELLOW) Urine Appearance CLEAR (CLEAR) Urine pH 6.5 (5-6) Ur Specific [place] 1.015 (1.005-1.025) POC Urine Protein Conf NEGATIVE (Negative) Urine Ketones NEGATIVE (NEGATIVE) Urine Nitrite NEGATIVE (NEGATIVE) Urine Bilirubin NEGATIVE (NEGATIVE) Urine Urobilinogen 0.2 (0-1) mg/dL Urine Leukocytes NEGATIVE (NEGATIVE) Urine WBC (Auto) 0-2 (0-5) /HPF Urine RBC (Auto) 0-2 (0-2) /HPF U Epithel Cells (Auto) RARE (FEW) /HPF Urine Bacteria (Auto) Not Reportable Urine RBC TRACE-INTACT (0-5) Felipe/ul Urine Mucus (Auto) SLIGHT (NEGATIVE) /HPF Urine Glucose NEGATIVE (NEGATIVE) mg/dL Urine HCG, Qual (Negative) Influenza Type A Ag NEGATIVE (NEGATIVE) Influenza Type B Ag NEGATIVE (NEGATIVE) RSV (PCR) NEGATIVE (Negative) SARS-CoV-2 (PCR) NEGATIVE (NEGATIVE) ABO Group O Rh Factor NEGATIVE Antibody Screen NEGATIVE (NEGATIVE) 06/22/22 06/23/22 06/23/22 Range/Units 18:49 04:21 04:21 WBC 12.9 H 13.6 H (4.0-10.5) x10^3/uL RBC 4.66 4.24 (4.1-5.4) x10^6/uL Hgb 12.7 11.5 L (12.0-16.0) g/dL Hct 39.3 36.2 (35-47) % MCV 84.3 85.4 (78-100) fL MCH 27.3 27.1 (26-32) pg MCHC 32.3 31.8 L (32-36) g/dL RDW 12.8 13.1 (11.5-14.0) % Plt Count 273 297 (150-450) x10^3/uL MPV 9.6 10.1 (7.5-11.0) fL Sodium 135 L (137-145) mmol/L Potassium 4.0 (3.5-5.1) mmol/L Chloride 107 (98-107) mmol/L Carbon Dioxide 23 (22-30) mmol/L Anion Gap 9.6 (5-15) MEQ/L BUN 5 L (7-17) mg/dL Creatinine 0.56 (0.52-1.04) mg/dL Estimated GFR > 60.0 ML/MIN Glucose 166 H (74-106) mg/dL Calcium 8.4 (8.4-10.2) mg/dL Total Bilirubin 0.30 (0.2-1.3) mg/dL AST 21 (14-36) U/L ALT 19 (0-35) U/L Alkaline Phosphatase 67 (38-126) U/L Serum Total Protein 6.5 (6.3-8.2) g/dL Albumin 3.7 (3.5-5.0) g/dL Urinalys Dipstick Clnc Urine Color (YELLOW) Urine Appearance (CLEAR) Urine pH (5-6) Ur Specific [place] (1.005-1.025) POC Urine Protein Conf (Negative) Urine Ketones (NEGATIVE) Urine Nitrite (NEGATIVE) Urine Bilirubin (NEGATIVE) Urine Urobilinogen (0-1) mg/dL Urine Leukocytes (NEGATIVE) Urine WBC (Auto) (0-5) /HPF Urine RBC (Auto) (0-2) /HPF U Epithel Cells (Auto) (FEW) /HPF Urine Bacteria (Auto) Urine RBC (0-5) Felipe/ul Urine Mucus (Auto) (NEGATIVE) /HPF Urine Glucose (NEGATIVE) mg/dL Urine HCG, Qual (Negative) Influenza Type A Ag (NEGATIVE) Influenza Type B Ag (NEGATIVE) RSV (PCR) (Negative) SARS-CoV-2 (PCR) (NEGATIVE) ABO Group Rh Factor Antibody Screen (NEGATIVE) - Procedures and Test Procedures and Tests throughout Hospitalization: Therapy Orders & Screens 06/22/22 14:36 Incentive Spirometry TID Comment: Diagnosis: failed uterine ablation Final Diagnosis/Problem List - Final Discharge Diagnosis/Problem (1) Menorrhagia Current Visit: Yes Status: Acute Code(s): N92.0 - EXCESSIVE AND FREQUENT MENSTRUATION WITH REGULAR CYCLE (2) S/P laparoscopic supracervical hysterectomy Current Visit: Yes Status: Acute Code(s): Z90.711 - ACQUIRED ABSENCE OF UTERUS WITH REMAINING CERVICAL STUMP - Discharge Disposition: Home, Self-Care Condition: Stable Prescriptions: New clindamycin HCL [Clindamycin HCl] 300 mg PO BID #6 cap Hydrocodone/Acetaminophen [Hydrocodone-Acetamin 5-325 mg] 1 tab PO Q6HPRN PRN #20 tablet MDD 4 PRN Reason: Pain No Action Topiramate 50 mg PO DAILY Duloxetine HCl [Cymbalta] 90 mg PO DAILY Ondansetron ODT 4 MG [Zofran Odt 4 mg] 4 mg PO Q6H PRN PRN PRN Reason: Nausea Eletriptan HBr 40 mg PO DAILY Follow up with: FABIAN WILLARD [Primary Care Provider] - MARK HAAS DO [ACTIVE STAFF] - 2 weeks (keep incision clean and dry no heavy lifting should fu in 2 wks call office for any issue that may arise may drive in a week)
[2022-06-23] MEDS ORDERED: ENOXAPARIN SODIUM SQ SCH (08:00)
[2022-06-23] MEDS: Docusate Sodium 100 MG PO SCH (08:04)
[2022-06-23] MEDS: TOPIRAMATE PO SCH (08:04)
[2022-06-23] MEDS: BENADRYL 50 MG/ML IV PRN (08:18)
[2022-06-23] MEDS ORDERED: ELETRIPTAN HBR 40 MG PO SCH (10:00)
[2022-06-23] MEDS ORDERED: Cymbalta 30 MG Capsule PO SCH (10:00)
[2022-06-23] MEDS ORDERED: HOLD NARCOTIC ANALGESICS AND SEDATIVES X24 HR MC SCH (10:00)
--- NOTE | 2022-06-23 14:55 | OP ---
SURGERY DATE/TIME: 06/22/2022 1116 PREOPERATIVE DIAGNOSES: 1) Dysmenorrhea. 2) Failed ablation. POSTOPERATIVE DIAGNOSES: 1) Dysmenorrhea. 2) Failed ablation. PROCEDURES: 1) Laparoscopic supracervical hysterectomy. 2) Bilateral salpingectomy. SURGEON: Jose Liu D.O. ACCESS NURSE: Camryn Duff and Olu Marie, surgical coordinator. ANESTHESIA: General. ESTIMATED BLOOD LOSS: Minimal. COMPLICATIONS: None. INDICATIONS: The risks, benefits, indications and alternatives of the procedure were reviewed with the patient prior to the procedure. The patient understood the risk of infection, bleeding, bowel injury, bladder injury, ureteral injury, uterine perforation, pelvic infection and thromboembolic disorder associated with this surgery and desires to have this surgery as a possible means to alleviate her current medical condition. DESCRIPTION OF PROCEDURE AND FINDINGS: At this point the patient is taken to the operating room given general anesthesia, placed in the supine position where she was prepped and draped in the usual sterile fashion. A 5 mm skin incision was made in the umbilical fold and a 5 mm trocar and sleeve were advanced under direct visualization where pneumoperitoneum was obtained with 4 liters of CO2 gas. An additional incision is made at left middle quadrant region where a 5 mm trocar and sleeve were advanced under direct visualization and a third trocar was placed on the right lower quadrant region where a 5 mm trocar and sleeve were advanced under direct visualization as well. A survey of the patient's pelvis and abdomen revealed her have normal anatomy with no gross abnormalities located within the pelvic region. From this point instrument was used to grasp the uterus towards its side and LigaSure was used to clamp, coagulate and cut the utero-ovarian ligament where it was taken to the round ligament toward uterine vasculature on its side where the uterine vessels were skeletonized and a bladder flap developed on its side. The uterine vasculature was grasped with LigaSure where it was clamped, coagulated and cut on two contiguous regions and hemostasis was obtained. The same procedure was performed on the right side where the LigaSure was used to grasp the right utero-ovarian ligament where it was clamped, coagulated and cut taken down to the round ligament towards the uterine vasculature where it too was skeletonized and it too was clamped, coagulated and cut on two contiguous regions and a bladder flap developed on its side. From this point the bilateral fallopian tubes were elevated and the LigaSure was used to clamp, coagulate and cut both sides from the mesosalpinx and hemostasis was obtained. From this point the SupraLoop was used to amputate the uterus from its cervical stump and was done so without complication. Hemostasis was obtained. From this point horizontal incision was made 2 inches above the symphysis pubis where a 2.5 cm incision was made taking down through the fascia where it too was incised bilaterally and the incision was opened with Michael retractor used to retract its opening. From this point the uterus was removed through the small incisional site and was done so without complication. The Michael retractor was then removed and the incisions were closed with 0 Vicryl suture followed by the subcutaneous layer which was closed with 3-0 Vicryl sutures and the skin was closed with absorbable phoenix called INSORB. A survey of the patient's pelvis and abdomen was noted to have hemostasis and no bleeding that was noted in the cervical stump region. From this point all instruments were removed from the patient's abdominal region. The incisions were closed with 4-0 Monocryl suture. The patient was then taken out of anesthesia and was then taken to the recovery room in stable condition. All instruments and laps were correct x2.
== END 2022-06-23 12:58 | disposition home or self-care (01) | DRG 743 ==
LOC: MED SURG 07:36 → EDSTATUS 13:17
PROVIDERS: ADMIT Obstetrics & Gynecology; ATTEND Obstetrics & Gynecology
PROC: 0UT94ZL Resection of Uterus, Supracervical, Percutaneous Endoscopic Approach (ICD-10-PCS; principal; 2022-06-22)
PROC: 0UT74ZZ Resection of Bilateral Fallopian Tubes, Percutaneous Endoscopic Approach (ICD-10-PCS; 2022-06-22)
DX: N92.0 Excessive and frequent menstruation with regular cycle (principal); N94.6 Dysmenorrhea, unspecified; N99.85 Post endometrial ablation syndrome; Z20.828 Contact with and (suspected) exposure to other viral communicable diseases
CPT/HCPCS: 0241U; 36415; 58542; 64488; 76937; 80053; 81001; 81025; 85027; 86850; 86900; 86901; 87086; 94760; 96374; 96375; 96376; 62322; 76942; J0694; J1100; J1200; J1650; J1885; J2175; J2250; J2274; J2300; J2405; J2704; J3010; A9270-GY

== ENCOUNTER 2023-06-27 19:21 | Emergency (ER) | payer SELFPAY ==
--- NOTE | 2023-06-27 19:28 | ERPHSYRPT ---
- History of Present Illness Time Seen by Provider: 06/27/23 19:28 Source: patient, family Exam Limitations: no limitations Physician History: This is a 33-year-old white female patient who has had 3-day symptoms of headache, body aches, fever and cough. 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 Patient's appetite has decreased. She is concerned about dehydration. She denies nausea vomiting and diarrhea. Patient has a history of asthma, anxiety. Patient has had bilateral tubal ligation performed in the past. She denies chest pain. She denies shortness of breath. Timing/Duration: day(s) (3), worse Severity: moderate Associated Symptoms: cough, fever, headaches, loss of appetite, weakness, No nausea, No vomiting, No abdominal pain, No shortness of breath, No chest pain Allergies/Adverse Reactions: Bleach Allergy (Uncoded 06/27/23 19:48) Headache verified 06/01/16 Hx Tetanus, Diphtheria Vaccination/Date Given: Yes Hx Influenza Vaccination/Date Given: No Hx Pneumococcal Vaccination/Date Given: No Travel Risk - International Travel Have you traveled outside of the country in past 3 weeks: No - Coronavirus Screening Are you exhibiting any of the following symptoms?: Yes Symptoms: Cough: New Onset, Headaches/Body Aches/Fatigue Close contact with a COVID-19 positive Pt in past 14-21 Days: Yes - Vaccine Status Have you recieved a Covid-19 vaccination: No - Review of Systems Constitutional: Fever, Weakness Eyes: No Symptoms Ears, Nose, & Throat: Throat Pain Respiratory: Cough Cardiac: No Symptoms Abdominal/Gastrointestinal: No Symptoms Genitourinary Symptoms: No Symptoms Musculoskeletal: Arthralgias, Myalgias Skin: No Symptoms Neurological: No Symptoms Psychological: No Symptoms Endocrine: No Symptoms Hematologic/Lymphatic: No Symptoms Immunological/Allergic: No Symptoms All Other Systems: Reviewed and Negative - Past Medical History Pertinent Past Medical History: Yes Neurological History: Migraines ENT History: No Pertinent History Cardiac History: No Pertinent History Respiratory History: Asthma Endocrine Medical History: No Pertinent History Musculoskeletal History: Other GI Medical History: Gallbladder Disease History: No Pertinent History Psycho-Social History: Anxiety, Depression Female Reproductive Disorders: No Pertinent History Other Medical History: "Chronic Calcium deficiency". anemia - Past Surgical History Past Surgical History: Yes Neuro Surgical History: No Pertinent History Cardiac: No Pertinent History Respiratory: No Pertinent History Gastrointestinal: Cholecystectomy Genitourinary: No Pertinent History Musculoskeletal: No Pertinent History Female Surgical History: Dilation & Curettage, Tubal Ligation, Other Other Surgical History: ablation 01/27/21 - Social History Smoking Status: Former smoker How long have you smoked: 11 Exposure to second hand smoke: No Drug Use: none Patient Lives Alone: No - Nursing Vital Signs Nursing Vital Signs: Initial Vital Signs Temperature 97.8 F 06/27/23 19:39 Pulse Rate 116 H 06/27/23 19:39 Respiratory Rate 22 06/27/23 19:39 Blood Pressure 128/73 06/27/23 19:39 O2 Sat by Pulse Oximetry 98 06/27/23 19:39 Pain Scale Pain Intensity 7 - Physical Exam General Appearance: mild distress, alert, anxiety Eye Exam: PERRL/EOMI, eyes nml inspection Ears, Nose, Throat Exam: normal ENT inspection, moist mucous membranes Neck Exam: normal inspection, non-tender, supple, full range of motion Respiratory Exam: normal breath sounds, lungs clear, airway intact, No chest tenderness, No respiratory distress Cardiovascular Exam: tachycardia Gastrointestinal/Abdomen Exam: soft, normal bowel sounds, No tenderness Pelvic Exam: not done Rectal Exam: not done Back Exam: normal inspection, normal range of motion, No CVA tenderness, No vertebral tenderness Extremity Exam: normal inspection, normal range of motion, pelvis stable Neurologic Exam: alert, oriented x 3, cooperative, forest aide II-XII nml as tested, normal mood/affect, nml cerebellar function, nml station & gait, sensation nml Skin Exam: normal color, warm, dry Lymphatic Exam: No adenopathy SpO2 Interpretation: normal O2 Delivery: Room Air - Course Nursing assessment & vital signs reviewed: Yes EKG Interpreted by Me: RATE (89), Sinus Rhythm, NORMAL AXIS, NORMAL INTERVALS, NORMAL QRS, NORMAL ST-T, Other (There are no acute ischemic changes on today's twelve-lead EKG) Ordered Tests: Active Orders 24 hr Category Date Time Status EKG-ER Only STAT Care 06/27/23 19:49 Active IV Insertion STAT Care 06/27/23 19:49 Active Pulse Oximetry (ED) STAT Care 06/27/23 19:49 Active CHEST 1 VIEW (PORTABLE) Stat Exams 06/27/23 19:50 Taken BLOOD CULTURE Stat Lab 06/27/23 20:31 Received CBC W DIFF Stat Lab 06/27/23 19:50 Completed CMP Stat Lab 06/27/23 19:50 Completed HCG QUALITATIVE, URINE Stat Lab 06/27/23 19:52 Completed MONO SCREEN Stat Lab 06/27/23 19:52 Completed UA W/RFX UR CULTURE Stat Lab 06/27/23 19:52 Completed Medication Summary Discontinued Medications Generic Name Dose Route Start Last Admin Trade Name Freq PRN Reason Stop Dose Admin Hydrocodone Bitart/Acetaminophen 10 ml 06/27/23 19:50 06/27/23 19:58 Hydrocodone/Acetaminophen 5 Ml Udcup PO 06/27/23 19:51 10 ml STAT STA Administration Hydrocodone Bitart/Acetaminophen Confirm 06/27/23 19:54 Hydrocodone/Acetaminophen 5 Ml Udcup Administered 06/27/23 19:55 Dose 10 ml .ROUTE .STK-MED ONE Methylprednisolone Sodium 0 mg 06/27/23 21:31 Succinate 125 mg/ Sterile IV 06/27/23 21:32 Water 2 ml STAT ONE Hydromorphone HCl 0.5 mg 06/27/23 21:05 06/27/23 21:08 Hydromorphone 1 Mg/1ml Inj IV 06/27/23 21:06 0.5 mg STAT ONE Administration Hydromorphone HCl Confirm 06/27/23 21:07 Hydromorphone 1 Mg/1ml Inj Administered 06/27/23 21:08 Dose 1 mg .ROUTE .STK-MED ONE Sodium Chloride 1,000 mls @ 999 mls/hr 06/27/23 19:49 06/27/23 20:58 Sodium Chloride 0.9% 1000 Ml IV 06/27/23 20:49 Infused .Q1H1M STA Infusion Sodium Chloride Confirm 06/27/23 19:54 Sodium Chloride 0.9% 1000 Ml Administered 06/27/23 19:55 Dose 1,000 mls @ ud .ROUTE .STK-MED ONE Ondansetron HCl 4 mg 06/27/23 19:49 06/27/23 19:58 Ondansetron Hcl 4 Mg/2 Ml Vial IV 06/27/23 19:50 4 mg STAT STA Administration Ondansetron HCl Confirm 06/27/23 19:54 Ondansetron Hcl 4 Mg/2 Ml Vial Administered 06/27/23 19:55 Dose 4 mg .ROUTE .STK-MED ONE Lab/Rad Data: Laboratory Result Diagrams 06/27/23 19:50 06/27/23 19:50 Laboratory Results 06/27/23 06/27/23 06/27/23 Range/Units 20:20 20:20 19:52 WBC (4.0-10.5) x10^3/uL RBC (4.1-5.4) x10^6/uL Hgb (12.0-16.0) g/dL Hct (35-47) % MCV (78-100) fL MCH (26-32) pg MCHC (32-36) g/dL RDW (11.5-14.0) % Plt Count (150-450) x10^3/uL MPV (7.5-11.0) fL Gran % (36.0-66.0) % Immature Gran % (Auto) (0.00-0.4) % Nucleat RBC Rel Count (0.00-0.1) % Eos # (Auto) (0-0.5) x10^3/uL Immature Gran # (Auto) (0.00-0.03) x10^3u/L Absolute Lymphs (auto) (1.0-4.6) x10^3/uL Absolute Monos (auto) (0.0-1.3) x10^3/uL Absolute Nucleated RBC (0.00-0.01) x10^3u/L Lymphocytes % (24.0-44.0) % Monocytes % (0.0-12.0) % Eosinophils % (0.00-5.0) % Basophils % (0.0-0.4) % Absolute Granulocytes (1.4-6.9) x10^3/uL Basophils # (0-0.4) x10^3/uL Sodium (137-145) mmol/L Potassium (3.5-5.1) mmol/L Chloride (98-107) mmol/L Carbon Dioxide (22-30) mmol/L Anion Gap (5-15) MEQ/L BUN (7-17) mg/dL Creatinine (0.52-1.04) mg/dL Estimated GFR ML/MIN Glucose (74-106) mg/dL Calcium (8.4-10.2) mg/dL Total Bilirubin (0.2-1.3) mg/dL AST (14-36) U/L ALT (0-35) U/L Alkaline Phosphatase (38-126) U/L Serum Total Protein (6.3-8.2) g/dL Albumin (3.5-5.0) g/dL Urine Color (Yellow) Urine Appearance (Clear) Urine pH (4.6-8.0) Ur Specific [place] (1.005-1.030) Urine Protein (Negative) Urine Glucose (UA) (Negative) mg/dL Urine Ketones (Negative) Urine Blood (Negative) Urine Nitrite (Negative) Urine Bilirubin (Negative) Urine Urobilinogen (0.2) mg/dL Ur Leukocyte Esterase (Negative) U Hyaline Cast (Auto) (0-2) /LPF Urine Microscopic RBC (0-5) /HPF Urine Microscopic WBC (0-5) /HPF Ur Epithelial Cells (None Seen) /HPF Urine Bacteria (None Seen) /HPF Urine Culture Reflexed (NO) Urine HCG, Qual NEGATIVE (NEGATIVE) Monoscreen NEGATIVE (NEGATIVE) Influenza Type A Ag NEGATIVE (NEGATIVE) Influenza Type B Ag NEGATIVE (NEGATIVE) RSV (PCR) NEGATIVE (NEGATIVE) SARS-CoV-2 (PCR) POSITIVE A (NEGATIVE) Group A Strep Antibody NOT DETECTED (NEGATIVE) 06/27/23 06/27/23 06/27/23 Range/Units 19:52 19:50 19:50 WBC 8.0 (4.0-10.5) x10^3/uL RBC 5.06 (4.1-5.4) x10^6/uL Hgb 14.3 (12.0-16.0) g/dL Hct 42.4 (35-47) % MCV 83.8 (78-100) fL MCH 28.3 (26-32) pg MCHC 33.7 (32-36) g/dL RDW 12.9 (11.5-14.0) % Plt Count 276 (150-450) x10^3/uL MPV 10.2 (7.5-11.0) fL Gran % 54.0 (36.0-66.0) % Immature Gran % (Auto) 0.3 (0.00-0.4) % Nucleat RBC Rel Count 0.0 (0.00-0.1) % Eos # (Auto) 0.06 (0-0.5) x10^3/uL Immature Gran # (Auto) 0.02 (0.00-0.03) x10^3u/L Absolute Lymphs (auto) 2.40 (1.0-4.6) x10^3/uL Absolute Monos (auto) 1.17 (0.0-1.3) x10^3/uL Absolute Nucleated RBC 0.00 (0.00-0.01) x10^3u/L Lymphocytes % 30.0 (24.0-44.0) % Monocytes % 14.6 H (0.0-12.0) % Eosinophils % 0.8 (0.00-5.0) % Basophils % 0.3 (0.0-0.4) % Absolute Granulocytes 4.33 (1.4-6.9) x10^3/uL Basophils # 0.02 (0-0.4) x10^3/uL Sodium 139 (137-145) mmol/L Potassium 3.7 (3.5-5.1) mmol/L Chloride 104 (98-107) mmol/L Carbon Dioxide 21 L (22-30) mmol/L Anion Gap 17.7 H (5-15) MEQ/L BUN 8 (7-17) mg/dL Creatinine 0.71 (0.52-1.04) mg/dL Estimated GFR > 60.0 ML/MIN Glucose 98 (74-106) mg/dL Calcium 9.4 (8.4-10.2) mg/dL Total Bilirubin 0.40 (0.2-1.3) mg/dL AST 25 (14-36) U/L ALT 24 (0-35) U/L Alkaline Phosphatase 60 (38-126) U/L Serum Total Protein 8.0 (6.3-8.2) g/dL Albumin 4.7 (3.5-5.0) g/dL Urine Color Yellow (Yellow) Urine Appearance Clear (Clear) Urine pH 5.5 (4.6-8.0) Ur Specific [place] 1.025 (1.005-1.030) Urine Protein Negative (Negative) Urine Glucose (UA) Negative (Negative) mg/dL Urine Ketones Trace A (Negative) Urine Blood Negative (Negative) Urine Nitrite Negative (Negative) Urine Bilirubin Negative (Negative) Urine Urobilinogen 0.2 (0.2) mg/dL Ur Leukocyte Esterase Negative (Negative) U Hyaline Cast (Auto) NONE SEEN (0-2) /LPF Urine Microscopic RBC 0-2 (0-5) /HPF Urine Microscopic WBC 0-2 (0-5) /HPF Ur Epithelial Cells Few (None Seen) /HPF Urine Bacteria None Seen (None Seen) /HPF Urine Culture Reflexed NO (NO) Urine HCG, Qual (NEGATIVE) Monoscreen (NEGATIVE) Influenza Type A Ag (NEGATIVE) Influenza Type B Ag (NEGATIVE) RSV (PCR) (NEGATIVE) SARS-CoV-2 (PCR) (NEGATIVE) Group A Strep Antibody (NEGATIVE) - Progress Progress: improved, re-examined Progress Note: 06/27/23 20:03 This patient's medical issue is 1 of moderate complexity. The level complexity in the work-up performed is based on review of the patient's past medical history, review of the patient's medication list, review the patient's drug allergy list, history of present illness and physical findings on examination. The work-up in this patient includes chest x-ray, placement of intravenous line, urinalysis, urine test, infusion of Zofran 4 mg, fusion of 1 L normal saline, CBC, CMP, COVID test, influenza A and B test, RSV test, group A strep test and monotest 06/27/23 21:34 I reviewed the results of the work-up. Patient tested positive for COVID-19 infection. Chest x-ray was interpreted by me. There is no evidence of any acute cardiopulmonary process. Counseled pt/family regarding: lab results, diagnosis, need for follow-up, rad results Medical Desision Making - Diagnostic Testing Diagnostic test were ordered, analyzed, and reviewed by me: Yes Radiological Interpretation: Interpreted by me - Risk of complications The pt has a mod risk of morbidity or mortality based on: Need for prescription drug management - Departure Departure Disposition: Home Clinical Impression: COVID-19 virus infection Condition: Stable Critical Care Time: No Referrals: DOCTOR,NO FAMILY [Primary Care Provider] - Follow up/PCP as directed Additional Instructions: Drink plenty of fluids. Take your medication as prescribed. Quarantine yourself per your employers policy. Prescriptions: Ondansetron ODT 4 MG [Zofran Odt 4 mg] 4 mg PO Q6H PRN PRN #10 tablet PRN Reason: Vomiting Prednisone 10 mg [Deltasone 10 mg] 10 mg PO TID #12 tablet
[2023-06-27 19:47] VITALS: TEMP 97.8
[2023-06-27] MEDS ORDERED: Zofran 4 MG/2 ML VIAL IV STA (19:49)
[2023-06-27] MEDS ORDERED: Sodium Chloride 0.9% 1000 ML 1,000 ML IV STA (19:49)
[2023-06-27] MEDS ORDERED: HYDROCODONE-ACETAMIN 2.5-108/5 ML SOLUTION PO STA ×2 (19:50→21:40)
[2023-06-27 19:52] VITALS: O2SAT 99
[2023-06-27] MEDS ORDERED: Sodium Chloride 0.9% 1000 ML 1,000 ML ONE (19:54)
[2023-06-27] MEDS ORDERED: HYDROCODONE-ACETAMIN 2.5-108/5 ML SOLUTION ONE ×2 (19:54→21:43)
[2023-06-27] MEDS ORDERED: Zofran 4 MG/2 ML VIAL ONE (19:54)
[2023-06-27 19:59] LABS: Absolute Neutrophil Ct (ANC) 4.33 x10^3/uL (1.4-6.9); BASOPHIL % 0.3 % (0.0-0.4); Basophil (Absolute #) 0.02 x10^3/uL (0-0.4); Eosinophil % 0.8 % (0.00-5.0); Eosinophil (Absolute #) 0.06 x10^3/uL (0-0.5); Hematocrit 42.4 % (35-47); Hemoglobin 14.3 g/dL (12.0-16.0); IMMATURE GRAN # 0.02 x10^3u/L (0.00-0.03); IMMATURE GRAN % 0.3 % (0.00-0.4); Mean Cell Volume 83.8 fL (78-100); Mean Corpuscular Hemoglobin 28.3 pg (26-32); Mean Corpuscular Hgb Concent. 33.7 g/dL (32-36); Mean Platelet Volume 10.2 fL (7.5-11.0); Monocyte (Absolute #) 1.17 x10^3/uL (0.0-1.3); Monocytes % 14.6 % (0.0-12.0); Platelet Count 276 x10^3/uL (150-450); Red Blood Count 5.06 x10^6/uL (4.1-5.4); Red Cell Distribution Width 12.9 % (11.5-14.0)
[2023-06-27 20:00] LABS: HCG URINE TEST NEGATIVE (NEGATIVE)
[2023-06-27 20:02] LABS: Appearance Clear (Clear); Bacteria None Seen /HPF (None Seen); Bilirubin Negative (Negative); Blood Negative (Negative); Epithelial Cells Few /HPF (None Seen); Glucose, Urine Negative (Negative); Hyaline Casts NONE SEEN /LPF (0-2); Ketones Trace (Negative); Leukocyte Esterase Negative (Negative); Nitrite Negative (Negative); Ph 5.5 (4.6-8.0); Protein,Urine Dip Negative (Negative); RBC 0-2 /HPF (0-5); Specific Gravity 1.025 (1.005-1.030); Urobilinogen 0.2 mg/dL (0.2); WBC 0-2 /HPF (0-5)
[2023-06-27 20:11] LABS: ADD URINE CULTURE? NO (NO)
[2023-06-27 20:11] LABS: ALBUMIN 4.7 g/dL (3.5-5.0); ALKALINE PHOSPHATASE 60 U/L (38-126); ANION GAP 17.7 MEQ/L (5-15); BLOOD UREA NITROGEN 8 mg/dL (7-17); CHLORIDE 104 mmol/L (98-107); Calcium 9.4 mg/dL (8.4-10.2); Carbon Dioxide 21 mmol/L (22-30); Creatinine 1 0.71 mg/dL (0.52-1.04); EST GLOMERULAR FILTRATION RATE > 60.0 ML/MIN; Glucose 98 mg/dL (74-106); Potassium 3.7 mmol/L (3.5-5.1); SGOT/AST 25 U/L (14-36); SGPT/ALT 24 U/L (0-35); SODIUM 139 mmol/L (137-145)
[2023-06-27] MEDS ORDERED: Hydromorphone 1 mg/ml Injection IV ONE (21:05)
[2023-06-27] MEDS ORDERED: Hydromorphone 1 mg/ml Injection ONE (21:07)
[2023-06-27 21:24] LABS: INFLUENZA A NEGATIVE (NEGATIVE); INFLUENZA B NEGATIVE (NEGATIVE); RESPIRATORY SYNCTIAL VIRUS NEGATIVE (NEGATIVE)
[2023-06-27 21:29] LABS: SARS-CoV-2 Xpert Express POSITIVE (NEGATIVE)
[2023-06-27] MEDS ORDERED: solu-MEDROL 125 MG, Sterile H2O 10 ml 2 ML IV ONE ×2 (21:31)
[2023-06-27] MEDS ORDERED: solu-MEDROL ONE (21:33)
[2023-06-27] MEDS ORDERED: Sterile H2O 10 ml IJ ONE (21:33)
[2023-06-27 21:53] VITALS: BP 106/75; PULSE 92; RESP 18
--- NOTE | 2023-06-28 09:01 | XRAY ---
Indication: Cough. Comparison: August 24, 2021 Portable chest continues to demonstrate normal heart, lungs, and bony thorax.
== END 2023-06-27 21:57 | disposition home or self-care (01) ==
LOC: ED 19:21
DX: U07.1 COVID-19 (principal); R50.9 Fever, unspecified; R51.9 Headache, unspecified; M79.10 Myalgia, unspecified site; R05.1 Acute cough; Z20.822 Contact with and (suspected) exposure to COVID-19; Z28.310 Unvaccinated for COVID-19; Z79.52 Long term (current) use of systemic steroids
CPT/HCPCS: 0241U; 36000; 36415; 71045; 80053; 81001; 81025; 85025; 86308; 87040; 87651; 93005; 94760; 96360; 96374; 96375; 99284; J1170; J2405; J2930; A9270-GY

== ENCOUNTER 2023-09-14 08:59 | Emergency (ER) | payer MEDICAID ==
[2023-09-14 09:15] VITALS: TEMP 98.6
[2023-09-14] MEDS ORDERED: Sodium Chloride 0.9% 1000 ML 1,000 ML IV STA (09:21)
[2023-09-14] MEDS ORDERED: Zofran 4 MG/2 ML VIAL IV ONE (09:21)
--- NOTE | 2023-09-14 09:23 | ERPHSYRPT ---
- History of Present Illness Time Seen by Provider: 09/14/23 09:15 Source: patient Exam Limitations: no limitations Patient Subjective Stated Complaint: Pt c/o of a severe migraine beginning night and then began vomiting since Tuesday and hasn't stopped, can not hold anything down Triage Nursing Assessment: Pt brought to the ER by her mother, tachycardic, rates overall body pain as 6/10 which she thinks is due to laying in bed for the past 5 days, last food intake was 6 days ago, headache, N&V, denies diarrhea, denies any other symptoms, pulses normal, skin n/w/d, walked into the ER with a stable gait Physician History: Patient is a 33-year-old female presents to emergency department for evaluation of nausea vomiting decreased p.o. body aches and a migraine headache that has been ongoing since . Patient reports she has not been able to tolerate p.o. No trauma no fever. No abdominal pain. upon arrival patient was observed to have a baseline tachycardia of 140. No associated chest pain. Patient has no significant past medical history per patient. Symptoms have been progressive. Symptoms are moderate in intensity. No specific worsening or improving factors. Patient denies a history of the same. She voices no other complaints or concerns at this time. Portions of this note were created with voice recognition technology. There may be grammatical, spelling, punctuation or sound alike errors Timing/Duration: day(s) (6 days) Severity: moderate Modifying Factors: Improves With: nothing Associated Symptoms: headaches, No syncope Allergies/Adverse Reactions: Bleach Allergy (Mild, Uncoded 09/14/23 09:15) Headache verified 09/14/2023 Hx Tetanus, Diphtheria Vaccination/Date Given: Yes Hx Influenza Vaccination/Date Given: No Hx Pneumococcal Vaccination/Date Given: No Travel Risk - International Travel Have you traveled outside of the country in past 3 weeks: No - Coronavirus Screening Are you exhibiting any of the following symptoms?: Yes Symptoms: Vomiting/Diarrhea Close contact with a COVID-19 positive Pt in past 14-21 Days: No - Vaccine Status Have you recieved a Covid-19 vaccination: No - Review of Systems Constitutional: No Symptoms, No Fever, No Chills Eyes: No Symptoms Ears, Nose, & Throat: No Symptoms Respiratory: No Symptoms, No Cough, No Dyspnea Cardiac: No Symptoms, No Chest Pain, No Edema, No Syncope Abdominal/Gastrointestinal: No Symptoms, No Abdominal Pain, No Nausea, No Vomiting, No Diarrhea Genitourinary Symptoms: No Symptoms, No Dysuria Musculoskeletal: No Symptoms, No Back Pain, No Neck Pain Skin: No Symptoms, No Rash Neurological: No Symptoms, No Dizziness, No Focal Weakness, No Sensory Changes Psychological: No Symptoms Endocrine: No Symptoms Hematologic/Lymphatic: No Symptoms Immunological/Allergic: No Symptoms All Other Systems: Reviewed and Negative - Past Medical History Pertinent Past Medical History: Yes Neurological History: Migraines ENT History: No Pertinent History Cardiac History: No Pertinent History Respiratory History: Asthma Endocrine Medical History: No Pertinent History Musculoskeletal History: Other GI Medical History: Gallbladder Disease History: No Pertinent History Psycho-Social History: Anxiety, Depression Female Reproductive Disorders: No Pertinent History Other Medical History: "Chronic Calcium deficiency". anemia - Past Surgical History Past Surgical History: Yes Neuro Surgical History: No Pertinent History Cardiac: No Pertinent History Respiratory: No Pertinent History Gastrointestinal: Cholecystectomy Genitourinary: No Pertinent History Musculoskeletal: No Pertinent History Female Surgical History: Dilation & Curettage, Tubal Ligation, Other Other Surgical History: ablation 01/27/21 - Social History Smoking Status: Former smoker How long have you smoked: 11 Exposure to second hand smoke: No Drug Use: none Patient Lives Alone: No - Female History Hx Now: No (hysterectomy) - Nursing Vital Signs Nursing Vital Signs: Initial Vital Signs Temperature 98.6 F 09/14/23 09:03 Pulse Rate 143 H 09/14/23 09:03 Blood Pressure 105/90 09/14/23 09:03 O2 Sat by Pulse Oximetry 99 09/14/23 09:03 Pain Scale Pain Intensity 6 - Physical Exam General Appearance: no apparent distress, alert Eye Exam: PERRL/EOMI, eyes nml inspection Ears, Nose, Throat Exam: normal ENT inspection, TMs normal, pharynx normal, moist mucous membranes Neck Exam: normal inspection, non-tender, supple, full range of motion Respiratory Exam: normal breath sounds, lungs clear, No respiratory distress Cardiovascular Exam: regular rate/rhythm, normal heart sounds, normal peripheral pulses Gastrointestinal/Abdomen Exam: soft, normal bowel sounds, No tenderness, No mass Back Exam: normal inspection, normal range of motion, No CVA tenderness, No v ertebral tenderness Extremity Exam: normal inspection, normal range of motion, pelvis stable Neurologic Exam: alert, oriented x 3, cooperative, normal mood/affect, nml cerebellar function, nml station & gait, sensation nml, No motor deficits Skin Exam: normal color, warm, dry, No rash Lymphatic Exam: No adenopathy SpO2 Interpretation: normal SpO2: 99 O2 Delivery: Room Air - Course Nursing assessment & vital signs reviewed: Yes Ordered Tests: Active Orders 24 hr Category Date Time Status AMA [Release AMA] OM.NOW Care 09/14/23 13:28 Active IV Insertion STAT Care 09/14/23 09:21 Active Telemetry q4h Care 09/14/23 10:33 Active CBC W DIFF Stat Lab 09/14/23 09:20 Completed CMP Stat Lab 09/14/23 09:20 Completed HCG QUALITATIVE, URINE Stat Lab 09/14/23 09:20 Completed LIPASE Stat Lab 09/14/23 09:20 Completed TROPONIN Q4H Lab 09/14/23 09:20 Completed TROPONIN Q4H Lab 09/14/23 12:55 Completed TROPONIN Q4H Lab 09/14/23 17:30 Ordered Medication Summary Generic Name Dose Route Start Last Admin Trade Name Freq PRN Reason Stop Dose Admin Magnesium Sulfate/Dextrose 100 mls @ 100 mls/hr 09/14/23 10:45 Magnesium 1 Gm / 100 Ml D5w IV 09/14/23 12:44 Q1H JUSTIN Potassium Chloride 20 meq in 100 mls @ 50 mls/hr 09/14/23 10:45 09/14/23 11:01 Potassium Chloride 20 Meq In Water 100ml IV 09/14/23 14:44 50 mls/hr Q2H JUSTIN Administration Sodium Chloride 1,000 mls @ 100 mls/hr 09/14/23 11:00 09/14/23 10:56 Sodium Chloride 0.9% 1000 Ml IV 10/14/23 10:59 100 mls/hr .Q10H JUSTIN Administration Discontinued Medications Generic Name Dose Route Start Last Admin Trade Name Freq PRN Reason Stop Dose Admin Sodium Chloride 1,000 mls @ 999 mls/hr 09/14/23 09:21 09/14/23 11:12 Sodium Chloride 0.9% 1000 Ml IV 09/14/23 10:21 Infused .Q1H1M STA Infusion Sodium Chloride Confirm 09/14/23 09:26 Sodium Chloride 0.9% 1000 Ml Administered 09/14/23 09:27 Dose 1,000 mls @ ud .ROUTE .STK-MED ONE Sodium Chloride Confirm 09/14/23 10:51 Sodium Chloride 0.9% 1000 Ml Administered 09/14/23 10:52 Dose 1,000 mls @ ud .ROUTE .STK-MED ONE Ondansetron HCl 4 mg 09/14/23 09:21 09/14/23 09:30 Ondansetron Hcl 4 Mg/2 Ml Vial IV 09/14/23 09:22 Not Given STAT ONE Ondansetron HCl Confirm 09/14/23 09:26 Ondansetron Hcl 4 Mg/2 Ml Vial Administered 09/14/23 09:27 Dose 4 mg .ROUTE .STK-MED ONE Potassium Chloride 40 meq 09/14/23 10:33 09/14/23 10:57 Potassium Chloride Tab 10 Meq Tab PO 09/14/23 10:34 40 meq STAT ONE Administration Potassium Chloride Confirm 09/14/23 10:51 Potassium Chloride Tab 10 Meq Tab Administered 09/14/23 10:52 Dose 40 meq PO .STK-MED ONE Potassium Chloride Confirm 09/14/23 11:07 Potassium Chloride Tab 10 Meq Tab Administered 09/14/23 11:08 Dose 10 meq PO .STK-MED ONE Prochlorperazine Edisylate 10 mg 09/14/23 09:27 09/14/23 09:31 Prochlorperazine Edisylate 10 Mg/2 Ml Vial IV 09/14/23 09:28 10 mg STAT ONE Administration Prochlorperazine Edisylate Confirm 09/14/23 09:27 Prochlorperazine Edisylate 10 Mg/2 Ml Vial Administered 09/14/23 09:28 Dose 10 mg .ROUTE .STK-MED ONE Lab/Rad Data: Laboratory Result Diagrams 09/14/23 09:20 09/14/23 09:20 Laboratory Results 09/14/23 09/14/23 09/14/23 Range/Units 12:55 09:31 09:31 WBC (4.0-10.5) x10^3/uL RBC (4.1-5.4) x10^6/uL Hgb (12.0-16.0) g/dL Hct (35-47) % MCV (78-100) fL MCH (26-32) pg MCHC (32-36) g/dL RDW (11.5-14.0) % Plt Count (150-450) x10^3/uL MPV (7.5-11.0) fL Gran % (36.0-66.0) % Immature Gran % (Auto) (0.00-0.4) % Nucleat RBC Rel Count (0.00-0.1) % Eos # (Auto) (0-0.5) x10^3/uL Immature Gran # (Auto) (0.00-0.03) x10^3u/L Absolute Lymphs (auto) (1.0-4.6) x10^3/uL Absolute Monos (auto) (0.0-1.3) x10^3/uL Absolute Nucleated RBC (0.00-0.01) x10^3u/L Lymphocytes % (24.0-44.0) % Monocytes % (0.0-12.0) % Eosinophils % (0.00-5.0) % Basophils % (0.0-0.4) % Absolute Granulocytes (1.4-6.9) x10^3/uL Basophils # (0-0.4) x10^3/uL Sodium (137-145) mmol/L Potassium (3.5-5.1) mmol/L Chloride (98-107) mmol/L Carbon Dioxide (22-30) mmol/L Anion Gap (5-15) MEQ/L BUN (7-17) mg/dL Creatinine (0.52-1.04) mg/dL Estimated GFR ML/MIN Glucose (74-106) mg/dL Calcium (8.4-10.2) mg/dL Total Bilirubin (0.2-1.3) mg/dL AST (14-36) U/L ALT (0-35) U/L Alkaline Phosphatase (38-126) U/L Troponin I < 0.012 (0.000-0.034) ng/mL Serum Total Protein (6.3-8.2) g/dL Albumin (3.5-5.0) g/dL Lipase (23-300) U/L Urine Color YELLOW (YELLOW) Urine Appearance SLIGHTLY CLOUDY A (CLEAR) Urine pH 6.0 (5-6) Ur Specific [place] >=1.030 A (1.005-1.025) Urine Protein Cancelled POC Urine Protein Conf 30 A (Negative) Urine Glucose (UA) Cancelled Urine Ketones >=160 A (NEGATIVE) Urine Blood Cancelled Urine Nitrite NEGATIVE (NEGATIVE) Urine Bilirubin MODERATE A (NEGATIVE) Urine Urobilinogen 0.2 (0-1) mg/dL Ur Leukocyte Esterase Cancelled Urine Leukocytes NEGATIVE (NEGATIVE) U Hyaline Cast (Auto) 11-20 (0-2) /LPF Urine RBC NEGATIVE (0-5) Felipe/ul Urine Microscopic RBC 3-5 (0-5) /HPF Urine Microscopic WBC 6-10 A (0-5) /HPF Ur Epithelial Cells Moderate A (None Seen) /HPF Urine Bacteria Rare A (None Seen) /HPF Urine Culture Reflexed NO (NO) Urine Glucose NEGATIVE (NEGATIVE) mg/dL Urine HCG, Qual (NEGATIVE) Influenza Type A Ag NEGATIVE (NEGATIVE) Influenza Type B Ag NEGATIVE (NEGATIVE) RSV (PCR) NEGATIVE (NEGATIVE) SARS-CoV-2 (PCR) NEGATIVE (NEGATIVE) 09/14/23 09/14/23 09/14/23 Range/Units 09:20 09:20 09:20 WBC (4.0-10.5) x10^3/uL RBC (4.1-5.4) x10^6/uL Hgb (12.0-16.0) g/dL Hct (35-47) % MCV (78-100) fL MCH (26-32) pg MCHC (32-36) g/dL RDW (11.5-14.0) % Plt Count (150-450) x10^3/uL MPV (7.5-11.0) fL Gran % (36.0-66.0) % Immature Gran % (Auto) (0.00-0.4) % Nucleat RBC Rel Count (0.00-0.1) % Eos # (Auto) (0-0.5) x10^3/uL Immature Gran # (Auto) (0.00-0.03) x10^3u/L Absolute Lymphs (auto) (1.0-4.6) x10^3/uL Absolute Monos (auto) (0.0-1.3) x10^3/uL Absolute Nucleated RBC (0.00-0.01) x10^3u/L Lymphocytes % (24.0-44.0) % Monocytes % (0.0-12.0) % Eosinophils % (0.00-5.0) % Basophils % (0.0-0.4) % Absolute Granulocytes (1.4-6.9) x10^3/uL Basophils # (0-0.4) x10^3/uL Sodium 137 (137-145) mmol/L Potassium 3.2 L (3.5-5.1) mmol/L Chloride 105 (98-107) mmol/L Carbon Dioxide 20 L (22-30) mmol/L Anion Gap 15.1 H (5-15) MEQ/L BUN 11 (7-17) mg/dL Creatinine 0.67 (0.52-1.04) mg/dL Estimated GFR 119.0 ML/MIN Glucose 116 H (74-106) mg/dL Calcium 9.8 (8.4-10.2) mg/dL Total Bilirubin 1.00 (0.2-1.3) mg/dL AST 23 (14-36) U/L ALT 19 (0-35) U/L Alkaline Phosphatase 59 (38-126) U/L Troponin I < 0.012 (0.000-0.034) ng/mL Serum Total Protein 8.6 H (6.3-8.2) g/dL Albumin 4.9 (3.5-5.0) g/dL Lipase 112 (23-300) U/L Urine Color (YELLOW) Urine Appearance (CLEAR) Urine pH (5-6) Ur Specific [place] (1.005-1.025) Urine Protein POC Urine Protein Conf (Negative) Urine Glucose (UA) Urine Ketones (NEGATIVE) Urine Blood Urine Nitrite (NEGATIVE) Urine Bilirubin (NEGATIVE) Urine Urobilinogen (0-1) mg/dL Ur Leukocyte Esterase Urine Leukocytes (NEGATIVE) U Hyaline Cast (Auto) (0-2) /LPF Urine RBC (0-5) Felipe/ul Urine Microscopic RBC (0-5) /HPF Urine Microscopic WBC (0-5) /HPF Ur Epithelial Cells (None Seen) /HPF Urine Bacteria (None Seen) /HPF Urine Culture Reflexed (NO) Urine Glucose (NEGATIVE) mg/dL Urine HCG, Qual NEGATIVE (NEGATIVE) Influenza Type A Ag (NEGATIVE) Influenza Type B Ag (NEGATIVE) RSV (PCR) (NEGATIVE) SARS-CoV-2 (PCR) (NEGATIVE) 09/14/23 Range/Units 09:20 WBC 10.0 (4.0-10.5) x10^3/uL RBC 5.81 H (4.1-5.4) x10^6/uL Hgb 16.5 H (12.0-16.0) g/dL Hct 47.0 (35-47) % MCV 80.9 (78-100) fL MCH 28.4 (26-32) pg MCHC 35.1 (32-36) g/dL RDW 12.4 (11.5-14.0) % Plt Count 336 (150-450) x10^3/uL MPV 10.3 (7.5-11.0) fL Gran % 63.5 (36.0-66.0) % Immature Gran % (Auto) 0.2 (0.00-0.4) % Nucleat RBC Rel Count 0.0 (0.00-0.1) % Eos # (Auto) 0.04 (0-0.5) x10^3/uL Immature Gran # (Auto) 0.02 (0.00-0.03) x10^3u/L Absolute Lymphs (auto) 2.48 (1.0-4.6) x10^3/uL Absolute Monos (auto) 1.07 (0.0-1.3) x10^3/uL Absolute Nucleated RBC 0.00 (0.00-0.01) x10^3u/L Lymphocytes % 24.8 (24.0-44.0) % Monocytes % 10.7 (0.0-12.0) % Eosinophils % 0.4 (0.00-5.0) % Basophils % 0.4 (0.0-0.4) % Absolute Granulocytes 6.33 (1.4-6.9) x10^3/uL Basophils # 0.04 (0-0.4) x10^3/uL Sodium (137-145) mmol/L Potassium (3.5-5.1) mmol/L Chloride (98-107) mmol/L Carbon Dioxide (22-30) mmol/L Anion Gap (5-15) MEQ/L BUN (7-17) mg/dL Creatinine (0.52-1.04) mg/dL Estimated GFR ML/MIN Glucose (74-106) mg/dL Calcium (8.4-10.2) mg/dL Total Bilirubin (0.2-1.3) mg/dL AST (14-36) U/L ALT (0-35) U/L Alkaline Phosphatase (38-126) U/L Troponin I (0.000-0.034) ng/mL Serum Total Protein (6.3-8.2) g/dL Albumin (3.5-5.0) g/dL Lipase (23-300) U/L Urine Color (YELLOW) Urine Appearance (CLEAR) Urine pH (5-6) Ur Specific [place] (1.005-1.025) Urine Protein POC Urine Protein Conf (Negative) Urine Glucose (UA) Urine Ketones (NEGATIVE) Urine Blood Urine Nitrite (NEGATIVE) Urine Bilirubin (NEGATIVE) Urine Urobilinogen (0-1) mg/dL Ur Leukocyte Esterase Urine Leukocytes (NEGATIVE) U Hyaline Cast (Auto) (0-2) /LPF Urine RBC (0-5) Felipe/ul Urine Microscopic RBC (0-5) /HPF Urine Microscopic WBC (0-5) /HPF Ur Epithelial Cells (None Seen) /HPF Urine Bacteria (None Seen) /HPF Urine Culture Reflexed (NO) Urine Glucose (NEGATIVE) mg/dL Urine HCG, Qual (NEGATIVE) Influenza Type A Ag (NEGATIVE) Influenza Type B Ag (NEGATIVE) RSV (PCR) (NEGATIVE) SARS-CoV-2 (PCR) (NEGATIVE) - Progress Progress: improved Progress Note: 33-year-old female presents to our ED for evaluation of nausea and vomiting x 6 days. Patient was found to be hypokalemic. Electrolyte replacement initiated. Patient later told staff that she had to go home. She had home obligations I could not wait. Patient able to tolerate p.o. However we were not done replacing her potassium. Patient leaving AMA. Risks and benefits discussed. Patient is of sound mind. Patient is appropriate to make informed and independent medical decisions. Patient understands that leaving AGAINST MEDICAL ADVICE can result in delayed diagnosis, increased risk of morbidity, mortality, short and long-term disability including . In spite of these risks, patient has decided to leave AGAINST MEDICAL ADVICE. Patient understands that she may return to our ED at any point if she reconsiders. Patient agrees to follow-up with her primary care doctor within 48 hours for reevaluation. Patient voices no other complaints or concerns at this time. We will release patient AGAINST MEDICAL ADVICE per their request. Complex of problems addressed is moderate acute complicated No critical care time Complex of data reviewed and analyzed is moderate. Test ordered test reviewed. Results analyzed and correlated clinically Risk of complication and a risk of morbidity/mortality of patient management is high. Patient leaving against medical advice with low potassium level. Vital stable. Time spent to discharge patient approximately 15 minutes. Patient requested a prescription for Zofran be forwarded to patient's pharmacy. 09/14/23 13:38 Counseled pt/family regarding: lab results, diagnosis, need for follow-up - Departure Departure Disposition: AMA Clinical Impression: Nausea & vomiting, Hypokalemia, Migraine Condition: Stable Critical Care Time: No Referrals: DOCTOR,NO FAMILY [Primary Care Provider] - Follow up/PCP as directed MARYAN GUPTA DO [ACTIVE STAFF] - Follow up/PCP as directed Additional Instructions: Discharge/Care Plan BLAKEXAVIER WARD was seen on 09/14/23 in the Emergency Room. The patient was counseled regarding Diagnosis,Lab results, Imaging studies, need for follow up and when to return to the Emergency Room. Prescriptions given: Discharge Note I have spoken with the patient and/or caregivers. I have explained the patient's condition, diagnosis and treatment plan based on the information available to me at this time. I have answered the patient's and/or caregiver's questions and addressed any concerns. The patient and/or caregivers have as good understanding of the patient's diagnosis, condition and treatment plan as can be expected at this point. The vital signs have been stable. The patient's condition is stable and appropriate for discharge from the emergency department. The patient will pursue further outpatient evaluation with the primary care physician or other designated or consulting physician as outlined in the discharge instructions. The patient and/or caregivers are agreeable to this plan of care and follow-up instructions have been explained in detail. The patient and/or caregivers have received these instruction. The patient/and or caregivers are aware that any significant change in condition or worsening of symptoms should prompt an immediate return to this or the closest emergency department or call 911. Prescriptions: Ondansetron ODT 4 MG [Zofran Odt 4 mg] 4 mg PO Q6H PRN PRN #10 tablet PRN Reason: Vomiting
[2023-09-14] MEDS ORDERED: Sodium Chloride 0.9% 1000 ML 1,000 ML ONE ×2 (09:26→10:51)
[2023-09-14] MEDS ORDERED: Zofran 4 MG/2 ML VIAL ONE (09:26)
[2023-09-14] MEDS ORDERED: Compazine 10 MG/2 ML ONE (09:27)
[2023-09-14] MEDS ORDERED: Compazine 10 MG/2 ML IV ONE (09:27)
[2023-09-14 09:39] LABS: Absolute Neutrophil Ct (ANC) 6.33 x10^3/uL (1.4-6.9); BASOPHIL % 0.4 % (0.0-0.4); Basophil (Absolute #) 0.04 x10^3/uL (0-0.4); Eosinophil % 0.4 % (0.00-5.0); Eosinophil (Absolute #) 0.04 x10^3/uL (0-0.5); Hemoglobin 16.5 g/dL (12.0-16.0); IMMATURE GRAN # 0.02 x10^3u/L (0.00-0.03); IMMATURE GRAN % 0.2 % (0.00-0.4); Lymphocyte (Absolute #) 2.48 x10^3/uL (1.0-4.6); Lymphocytes % 24.8 % (24.0-44.0); Mean Cell Volume 80.9 fL (78-100); Mean Corpuscular Hemoglobin 28.4 pg (26-32); Mean Corpuscular Hgb Concent. 35.1 g/dL (32-36); Mean Platelet Volume 10.3 fL (7.5-11.0); Monocyte (Absolute #) 1.07 x10^3/uL (0.0-1.3); Monocytes % 10.7 % (0.0-12.0); Neutrophil % 63.5 % (36.0-66.0); Platelet Count 336 x10^3/uL (150-450); Red Blood Count 5.81 x10^6/uL (4.1-5.4); Red Cell Distribution Width 12.4 % (11.5-14.0)
[2023-09-14 09:40] LABS: Appearance SLIGHTLY CLOUDY (CLEAR); Bilirubin MODERATE (NEGATIVE); Glucose NEGATIVE (NEGATIVE); Ketones >=160 (NEGATIVE); Nitrite NEGATIVE (NEGATIVE); Protein,Urine Dip 30 (Negative); RBC NEGATIVE Ery/ul (0-5); Specific Gravity >=1.030 (1.005-1.025); Urobilinogen 0.2 mg/dL (0-1)
[2023-09-14 09:43] LABS: HCG URINE TEST NEGATIVE (NEGATIVE)
[2023-09-14 09:44] LABS: Bacteria Rare /HPF (None Seen); Epithelial Cells Moderate /HPF (None Seen)
[2023-09-14 09:55] LABS: ALBUMIN 4.9 g/dL (3.5-5.0); ANION GAP 15.1 MEQ/L (5-15); Calcium 9.8 mg/dL (8.4-10.2); Creatinine 1 0.67 mg/dL (0.52-1.04); Potassium 3.2 mmol/L (3.5-5.1); Total Protein 8.6 g/dL (6.3-8.2)
[2023-09-14 10:10] LABS: ADD URINE CULTURE? NO (NO)
[2023-09-14 10:12] LABS: INFLUENZA A NEGATIVE (NEGATIVE); INFLUENZA B NEGATIVE (NEGATIVE); RESPIRATORY SYNCTIAL VIRUS NEGATIVE (NEGATIVE); SARS-CoV-2 Xpert Express NEGATIVE (NEGATIVE)
[2023-09-14] MEDS ORDERED: Klor Con PO ONE ×3 (10:33→11:07)
[2023-09-14] MEDS ORDERED: POTASSIUM CHLORIDE 20 mEq IN WATER 100ML 20 MEQ/100 ML BAG IV SCH (10:45)
[2023-09-14] MEDS ORDERED: Magnesium 1 Gm / 100 Ml D5W*** 100 ML IV SCH (10:45)
[2023-09-14] MEDS ORDERED: POTASSIUM CHLORIDE 20 mEq IN WATER 100ML 100 ML IV ONE (10:52)
[2023-09-14] MEDS ORDERED: Sodium Chloride 0.9% 1000 ML 1,000 ML IV SCH (11:00)
[2023-09-14 13:05] VITALS: BP 102/74; PULSE 105; RESP 16
[2023-09-14 13:23] VITALS: O2SAT 99
== END 2023-09-14 13:57 | disposition left against medical advice (07) ==
LOC: ED 08:59
DX: E87.6 Hypokalemia (principal); R11.2 Nausea with vomiting, unspecified; G43.909 Migraine, unspecified, not intractable, without status migrainosus; M79.10 Myalgia, unspecified site; Z28.310 Unvaccinated for COVID-19
CPT/HCPCS: 0241U; 36415; 80053; 81015; 81025; 83690; 84484; 85025; 96374; 99284; J2405; J3480; A9270-GY